=== PATIENT | male | born 1980 | race Two or more races ===

== ENCOUNTER 2019-03-16 13:24 | Inpatient (IN) | payer SELFPAY ==
[~2019-03-16] VITALS: Ht 185.4 cm; Wt 76.8 kg
[2019-03-16] MEDS ORDERED: MIDAZOLAM DRIP 50 mg/50mL 0 ML IV ONE (13:26)
[2019-03-16] MEDS ORDERED: SODIUM CHLORIDE 0.9% 500 ML IVB ONE (13:28)
[2019-03-16] MEDS: MIDAZOLAM DRIP 50 mg/50mL 50 ML IV SCH ×2 (13:30→20:23)
[2019-03-16] MEDS ORDERED: SUCCINYLCHOLINE CHLORIDE 20 MG/ML 10ML VIAL IV ONE ×2 (13:33→14:30)
[2019-03-16 13:39] LABS: Basophils # (auto) 0.1 uL; Basophils % (auto) 0.4 % (0.0-2.0); Eosinophils # (auto) 0.1 uL; Eosinophils % (auto) 0.8 % (0.0-7.0); Hematocrit 42.8 % (41.0-53.0); Hemoglobin 13.9 g/dL (13.5-17.5); Lymphocytes # (auto) 4.6 uL; Lymphocytes % (auto) 33.1 % (10.0-50.0); Mean Corpuscular Hemoglobin 30.1 pg (28.0-32.0); Mean Corpuscular Hgb Conc. 32.5 g/dL (32.0-36.0); Mean Corpuscular Volume 92.6 fL (80.0-100.0); Monocytes # (auto) 0.9 uL; Monocytes % (auto) 6.2 % (0.0-12.0); Neutrophils # (auto) 8.3 uL; Neutrophils % (auto) 59.5 % (37.0-80.0); Nucleated Red Blood Cells % 0.1 %; Platelet Count (auto) 266 10^3/uL (140-450); Red Blood Cells 4.63 10^6/uL (4.5-5.90)
[2019-03-16] MEDS: PROPOFOL 100 ML IV SCH ×2 (13:45→22:32)
[2019-03-16] MEDS ORDERED: PROPOFOL 100 ML IV ONE (13:50)
[2019-03-16 13:56] LABS: Alanine Aminotransferase 45 U/L (16-61); Anion Gap 13 (5-15); Aspartate Aminotransferase 37 U/L (15-37); BUN/Creatinine Ratio 22.1; Blood Alcohol < 3.0 mg/dL (0-5); Blood Urea Nitrogen 23 mg/dL (7-18); Calcium 7.5 mg/dL (8.5-10.1); Carbon Dioxide 19 mmol/L (21-32); Chloride 109 mmol/L (98-107); GFR African American 104 mL/min; GFR Non-African American 86 mL/min; Glucose 227 mg/dL (74-106); Magnesium 2.3 mg/dL (1.6-2.6); Potassium 3.3 mmol/L (3.5-5.1); Sodium 141 mmol/L (136-145)
[2019-03-16 14:01] LABS: Alkaline Phosphatase 74 U/L (45-117); Bilirubin, Total 0.7 mg/dL (0.2-1.0); Total Protein 6.6 g/dL (6.4-8.2)
[2019-03-16 14:15] VITALS: BP 164/89
[2019-03-16] MEDS: NOREPINEPHRINE 8 MG/250ML KIT 250 ML IV SCH (14:20)
[2019-03-16 14:35] LABS: Lactic Acid w/Reflex 6.1 mmol/L (0.4-2.0)
--- NOTE | 2019-03-16 14:44 | NUR ---
Respiratory note: PATIENT BIBA S/P CPR INTUBATED WITH A 7.5 ETT SECURED AT THE 20CM MARKING AND WITH ROSC ACHIEVED. HE WAS REINTUBATED WITH AN 8.0 ETT THE CUFF WAS BLOWN ON INITIAL ETT. TUBE WAS SECURED VIA ASHLEY AT THE 24CM MARKING AT THE LIP. HE WAS PLACED ON V15 ESPRIT VENTILATOR WITH THE CHARTED SETTINGS PER DR. SUAREZ'S BEDSIDE ORDER. LUNG SOUNDS ARE COARSE T/O AND A MODERATE AMOUNT OF THICK AYERS/BLOOD TINGED SECRETIONS WHEN SUCTIONED. SPUTUM SAMPLE COLLECTED AND SENT TO LAB. PATIENT IS SEDATED ON VERSED AND PROPOFOL DRIP AND HAS LEVOPHED DRIP FOR BP. HE REMAINS SLIGHTLY AGITATED, MOVING ABOUT PERIODICALLY. VENT PLUGGED INTO RED OUTLET AND ALL ALARMS ARE SET AND AUDIBLE. WILL CONTINUE TO ASSESS PATIENT WELL VENTILATOR FUNCTION.
[2019-03-16] MEDS ORDERED: NITROGLYCERIN 0.4 MG SL TAB SL PRN ×2 (15:00→15:45)
[2019-03-16] MEDS ORDERED: MORPHINE SULF INJ 2 MG/ML SYRINGE 1ML IV PRN ×2 (15:00→15:45)
[2019-03-16] MEDS ORDERED: MEPERIDINE HCL (25 MG/ML) 1ML VIAL ONE (15:26)
[2019-03-16] MEDS ORDERED: LEVOFLOXACIN 500MG 100 ML IV ONE (15:30)
[2019-03-16] MEDS ORDERED: ATRACURIUM BESYLATE 1,000 MG in D5W 5% 150 ML IV SCH (15:34)
[2019-03-16] MEDS ORDERED: fentaNYL Drip 2500mCg/250mlNS 250 ML IV SCH (15:34)
[2019-03-16] MEDS ORDERED: MEPERIDINE HCL (25 MG/ML) 1ML VIAL IV ONE (15:45)
[2019-03-16] MEDS ORDERED: POTASSIUM CHL 20MEQ/100ML 100 ML IV ONE (15:45)
[2019-03-16] MEDS ORDERED: DEXTROSE (50%) 50ML SYRG IV PRN (15:45)
[2019-03-16] MEDS ORDERED: fentaNYL Drip 2500mCg/250mlNS 250 ML IV ONE (16:01)
[2019-03-16 16:02] LABS: Urine Bacteria NONE SEEN /hpf (None Seen); Urine Blood 2+ /uL (Negative); Urine Mucus FEW (None Seen); Urine Specific Gravity 1.026 (1.001-1.035); Urine WBC 49 /hpf (0 - 3); Urine WBC Clumps PRESENT /hpf (None Seen)
[2019-03-16 16:04] VITALS: BP 154/87
[2019-03-16 16:06] LABS: Alcohol, Urine < 3.0 mg/dL (0-5); Amphetamine Screen, Urine POSITIVE (NEGATIVE); Barbiturate Scree,Urine NEGATIVE (NEGATIVE); Benzodiazephine Screen, Urine POSITIVE (NEGATIVE); Cannabinoid Screen, Urine POSITIVE (NEGATIVE); Cocaine Screen, Urine NEGATIVE (NEGATIVE); Opiate Scree,Urine NEGATIVE (NEGATIVE); Phencyclidine Screen, Urine NEGATIVE (NEGATIVE)
[2019-03-16] MEDS: fentaNYL Drip 2500mCg/250mlNS 250 ML IV SCH (16:10)
[2019-03-16] MEDS ORDERED: ATRACURIUM BESYLATE 1,000 MG in D5W 5% 150 ML IV ONE (16:15)
[2019-03-16] MEDS ORDERED: OPTISON 3ml Vial for INJ IV ONE ×2 (17:08→17:15)
[2019-03-16 17:09] LABS: Phosphorus 2.4 mg/dL (2.5-4.90)
[2019-03-16] MEDS: ACCU-CHEK COMFORT CURVE STRIP VI SCH ×2 (17:33→21:30)
[2019-03-16] MEDS: InsuLIN REG 1unit/0.01ml Soln (100units/ml) SC SCH ×2 (17:33→20:00)
[2019-03-16] MEDS ORDERED: ARTIFICIAL TEAR OPTH(EYE) OINT 3.5GM EACHEYE SCH (18:00)
[2019-03-16 18:10] VITALS: BP 101/80
[2019-03-16] MEDS ORDERED: SODIUM BICARBONATE 8.4 % INJ 50ML VIAL IV ONE (19:00)
[2019-03-16 19:50] VITALS: BP 103/73
[2019-03-16 21:51] VITALS: BP 146/84
[2019-03-16] MEDS: CLINDAMYCIN 300MG IV 50 ML IV SCH (22:42)
[2019-03-16] MEDS: FAMOTIDINE (10MG/ML) 2ML VL IV SCH (22:47)
[2019-03-16] MEDS: ARTIFICIAL TEARS 15ml EACHEYE SCH (22:47)
[2019-03-16 23:50] VITALS: BP 126/50
[2019-03-17] VITALS (59 sets, daily range): BP systolic 78–121; BP diastolic 45–79
[2019-03-17] MEDS: ACCU-CHEK COMFORT CURVE STRIP VI SCH ×6 (00:14→20:00)
[2019-03-17] MEDS: MIDAZOLAM DRIP 50 mg/50mL 50 ML IV SCH ×4 (01:05→22:26)
[2019-03-17] MEDS: ARTIFICIAL TEARS 15ml EACHEYE SCH ×6 (03:36→22:27)
[2019-03-17] MEDS: fentaNYL Drip 2500mCg/250mlNS 250 ML IV SCH ×2 (04:45→18:13)
[2019-03-17] MEDS: InsuLIN REG 1unit/0.01ml Soln (100units/ml) SC SCH ×6 (04:46→20:00)
[2019-03-17] MEDS: CLINDAMYCIN 300MG IV 50 ML IV SCH ×2 (06:26→14:24)
[2019-03-17] MEDS: PROPOFOL 100 ML IV SCH ×2 (07:32→16:14)
[2019-03-17] MEDS: FAMOTIDINE (10MG/ML) 2ML VL IV SCH ×2 (08:47→22:27)
[2019-03-17] MEDS: ENOXAPARIN SOD 40 MG/0.4 ML SYRINGE SC SCH (08:47)
[2019-03-17] MEDS ORDERED: cefTRIAXone 1GM/50ML D5W 50 ML IV SCH (09:00)
--- NOTE | 2019-03-17 09:20 | NUR ---
Respiratory note: ADVANCED PT'S ETT 4CM WITHOUT INCIDENT PER CXR FINDING. SECURED ETT AT 28CM AT THE LIP WITH ASHLEY. ADEQUATE VT. RN AWARE OF CHANGE.
--- NOTE | 2019-03-17 10:45 | NUR ---
RT NOTE: PT. TRANSFERRED TO ICU 103 WITH RN NIKKI AND DIRECTOR OF DIGITAL MARKETING STUDENT WITHOUT INCIDENT. WET WASHER MACHINE IN PLACE. PT. BAGGED WITH 15L O2. PT. PLACED ON VENT WITH ORDERED VENT SETTINGS.
--- NOTE | 2019-03-17 10:50 | NUR ---
Admit to ICU from ER on vent Deborah CAMPdmitted to ICU via rney on box loader, intubated and being bagged by Respiratory Therapist. Patient transferred to bed, connected to mechanical ventilator by therapist, KAITLYN at bedside. Patient connected to ICU monitoring, weighed by bedscale, oriented to Delmy carmichael RN. Patient maxed on 3 sedation and Levophed infusing at 6mcg to right femoral Zoll/ TLC. Pupils 2, equal, sluggish. No gag noted at this time, no response to pain. Sedation to be titrate as tolerated. Pt orally intubated. Tolerating ventilator well, no distress noted. Pt noted afib 50-60's. All pulses palpable. Abd round and soft with active bowel sounds. Skin intact. Peripheral iv's also noted to left ac and left foot, patent and asymptomatic. Zoll to continues therapeutic hypothermia until 191 as reported. Current temp 91.4 Rectally. See further notes.
--- NOTE | 2019-03-17 11:55 | NUR ---
WOUND CARE NOTE: Wound care in to see patient due to low Guanako score of 12 and intubation status, putting patient to high risk for skin breakdown. Patient is 38 years old male admitted s/p CPR. Patient is resting in ICU bed in Rm. 103. He's intubated, sedated and mechanically ventilated. Patient appears to be in no pain using Doan Jackson Faces Pain Scale. Skin assessment done with the assistance of patient's nurse, LALITO Brock. No open wound noted other than puncture wound to distal LLE possibly from IO site; area is clean and dry, left open to air. No pressure injury noted. Repositioned patient for comfort facing his left side, redistributed pressure points with pillows. Patient tolerated well. Patient's family and LALITO Brock at bedside. RECOMMENDATION: BID/PRN Cleaning and application of Barrier cream to sacral, buttocks as preventative per MD order, Dietary consult for low Guanako score, frequent turning and repositioning schedule as condition permits, redistribute pressure points with pillows, continue monitoring by wound care while patient is mechanically ventilated. Addendum: 03/17/19 at 1530 by Herlinda Johnson RN Amended: Links added.
[2019-03-17 12:12] LABS: Basophils # (auto) 0.1 uL; Basophils % (auto) 0.9 % (0.0-2.0); Eosinophils # (auto) 0.1 uL; Eosinophils % (auto) 1.3 % (0.0-7.0); Hematocrit 44.5 % (41.0-53.0); Hemoglobin 14.9 g/dL (13.5-17.5); Lymphocytes # (auto) 1.5 uL; Lymphocytes % (auto) 19.9 % (10.0-50.0); Mean Corpuscular Hgb Conc. 33.4 g/dL (32.0-36.0); Mean Corpuscular Volume 89.8 fL (80.0-100.0); Monocytes # (auto) 0.6 uL; Monocytes % (auto) 8.4 % (0.0-12.0); Neutrophils # (auto) 5.1 uL; Neutrophils % (auto) 69.5 % (37.0-80.0); Nucleated Red Blood Cells % 0.1 %; Platelet Count (auto) 250 10^3/uL (140-450); Red Blood Cells 4.95 10^6/uL (4.5-5.90); Red Cell Distribution Width 13.2 % (11.8-14.3); White Blood Cell 7.3 10^3/uL (4.4-10.8)
[2019-03-17 12:28] LABS: Potassium 3.3 mmol/L (3.5-5.1)
[2019-03-17 12:36] LABS: Albumin 2.9 g/dL (3.4-5.0); BUN/Creatinine Ratio 26.7; Bilirubin, Total 0.6 mg/dL (0.2-1.0); Calcium 8.3 mg/dL (8.5-10.1); Magnesium 2.5 mg/dL (1.6-2.6); Total Protein 6.3 g/dL (6.4-8.2)
[2019-03-17] MEDS: NOREPINEPHRINE 8 MG/250ML KIT 250 ML IV SCH (14:00)
--- NOTE | 2019-03-17 15:00 | NUR ---
ALL BELONGINGS AT BEDSIDE SENT HOME WITH FATHER MARCELO. FORM COMPLETED
--- NOTE | 2019-03-17 15:25 | NUR ---
MD AT BEDSIDE DR. FLOWERS UPDATED ON PATIENTS STATUS. NEW ORDERS IN PLACE. MD SPOKE TO FATHER AT BEDSIDE, UPDATED ON PLAN OF CARE AND CURRENT STATUS, QUESTIONS AND CONCERNS ADDRESSED. REQUEST FOR MEDICAL RECORDS REQUESTED BY FATHER AT BEDSIDE FROM [facility]. DISCLOSURE OF HEALTH INFORMATION FOR SIGNED.
--- NOTE | 2019-03-17 15:26 | NUR ---
CARDIOLOGY CONSULT PAGED DR. MATTHEWS PAPER CUP HANDLE MACHINE OPERATOR. MSG LEFT WITH EXCHANGE, AWAITING CALLBACK.
[2019-03-17] MEDS ORDERED: POTASSIUM EFFERVESENT TAB 25 MEQ GT ONE (15:30)
--- NOTE | 2019-03-17 16:17 | NUR ---
Blood sugar reading via finger stick 64. Patient remains intubated/ sedated and NPO. Dextrose give per protocol.
--- NOTE | 2019-03-17 16:35 | NUR ---
Gastric residual 150ml of gastric residual noted during aspiration. Potassium replacement changed from OG to IV. Md updated on blood glucose of 64. No new orders, Accu checks to remain as ordered.
[2019-03-17] MEDS ORDERED: POTASSIUM CHL 20MEQ/100ML 100 ML IV ONE ×2 (16:40→16:45)
--- NOTE | 2019-03-17 17:03 | NUR ---
Family updated on pt status Family of BOB CAMP updated on patient's status and condition. All questions and concerns addressed. Father, Amado verbalized understanding.
[2019-03-17] MEDS: PIPERACILLIN-TAZOB 3.375GM 100 ML IV SCH (18:12)
[2019-03-17 19:02] LABS: Albumin 2.7 g/dL (3.4-5.0); Calcium 8.3 mg/dL (8.5-10.1); Potassium 3.2 mmol/L (3.5-5.1)
[2019-03-17 19:07] LABS: BUN/Creatinine Ratio 22.5; Bilirubin, Total 0.8 mg/dL (0.2-1.0); Total Protein 6.1 g/dL (6.4-8.2)
--- NOTE | 2019-03-17 19:15 | NUR ---
Opening Shift Note Received pt on mechanical ventilator, sedated on versed, propofol, and fentanyl. Pt does not awaken spontaneously or to any stimuli. No cough or gag present. Will titrate down on sedation accordingly. Pupils are round, equal, reactive to light and sluggish. OGT in place, clamped. Positive placement checked via air bolus. Palpable pulses. Sinus Rhythm on bedside monitor in 90's. Minimal amount of secretions suctioned endotracheally. Bernal catheter in place draining to gravity. Skin intact. Blanchable redness to sacrum. placed optifoam to sacrum for preventative measures. Re warming phase of therapeutic hypothermia started now. All alarms on and audible. Pt in full view of RN. Will continue to monitor closely.
--- NOTE | 2019-03-17 21:21 | NUR ---
Family at bedside. Sister here and friend.
[2019-03-18] VITALS (106 sets, daily range): BP systolic 84–132; BP diastolic 47–81
[2019-03-18] MEDS: ARTIFICIAL TEARS 15ml EACHEYE SCH ×6 (02:00→22:19)
--- NOTE | 2019-03-18 03:00 | NUR ---
PT REACHED REWARMING TARGET TEMPERATURE
[2019-03-18 03:46] LABS: Basophils # (auto) 0 uL; Basophils % (auto) 0.1 % (0.0-2.0); Eosinophils # (auto) 0 uL; Hematocrit 50.1 % (41.0-53.0); Hemoglobin 15.9 g/dL (13.5-17.5); Lymphocytes # (auto) 0.5 uL; Lymphocytes % (auto) 2.8 % (10.0-50.0); Mean Corpuscular Hemoglobin 30.1 pg (28.0-32.0); Mean Corpuscular Hgb Conc. 31.8 g/dL (32.0-36.0); Mean Corpuscular Volume 94.7 fL (80.0-100.0); Monocytes # (auto) 0.8 uL; Monocytes % (auto) 4.5 % (0.0-12.0); Neutrophils # (auto) 16.4 uL; Neutrophils % (auto) 92.6 % (37.0-80.0); Nucleated Red Blood Cells % 0.1 %; Platelet Count (auto) 226 10^3/uL (140-450); Red Blood Cells 5.29 10^6/uL (4.5-5.90); White Blood Cell 17.7 10^3/uL (4.4-10.8)
[2019-03-18] MEDS: InsuLIN REG 1unit/0.01ml Soln (100units/ml) SC SCH ×6 (04:00→20:00)
[2019-03-18 04:07] LABS: Albumin 2.7 g/dL (3.4-5.0); Calcium 8.4 mg/dL (8.5-10.1); Potassium 3.6 mmol/L (3.5-5.1)
[2019-03-18 04:13] LABS: BUN/Creatinine Ratio 23.3; Bilirubin, Total 0.9 mg/dL (0.2-1.0); Total Protein 6.6 g/dL (6.4-8.2)
[2019-03-18] MEDS: ACCU-CHEK COMFORT CURVE STRIP VI SCH ×6 (04:18→21:40)
[2019-03-18] MEDS: PIPERACILLIN-TAZOB 3.375GM 100 ML IV SCH ×4 (05:21→17:51)
--- NOTE | 2019-03-18 05:30 | NUR ---
NEURO WEANED PROPOFOL OFF AT THIS TIME TO ASSESS NEURO STATUS OF PT. NO RESPONSE. VERSED AT 5MG. FENTANYL AT 50 MCG
--- NOTE | 2019-03-18 07:15 | NUR ---
REPORT RECEIVED FROM RELIGIOUS ASSISTANT NURSE. PATIENT RESTING IN BED AT THIS TIME. PATIENT INTUBATED AND SEDATED, RESPIRATIONS EVEN AND UNLABORED. NO SIGNS OF ACUTE DISTRESS NOTED. BED IN LOW POSITION. WILL CONTINUE TO MONITOR.
--- NOTE | 2019-03-18 07:26 | NUR ---
end of shift note report given to day shift RN to assume care
--- NOTE | 2019-03-18 10:10 | NUR ---
DR CANALES AT BEDSIDE TO ASSESS PATIENT AND DISCUSS PLAN OF CARE. MD MADE AWARE OF PATIENTS COOL HANDS WITH MOTTLING. PER MD MONITOR AT THIS TIME, PULSES PALPABLE. PER MD START TUBE FEEDING PER DIETARY RECOMMENDATION. ADMINISTER LASIX 20MG IVP X1 DOSE. ALL ORDERS NOTED IN CHART.
[2019-03-18] MEDS: ENOXAPARIN SOD 40 MG/0.4 ML SYRINGE SC SCH (10:11)
[2019-03-18] MEDS: FAMOTIDINE (10MG/ML) 2ML VL IV SCH ×2 (10:12→22:19)
[2019-03-18] MEDS ORDERED: FUROSEMIDE 20 MG/2 ML VIAL IV ONE (13:30)
[2019-03-18] MEDS: NOREPINEPHRINE 8 MG/250ML KIT 250 ML IV SCH (14:00)
--- NOTE | 2019-03-18 14:00 | NUR ---
DR WALSH AT BEDSIDE TO ASSESS PATIENT AND DISCUSS PLAN OF CARE. ALL ORDERS NOTED IN CHART.
--- NOTE | 2019-03-18 17:26 | NUR ---
INFORMED DR MATTHEWS OF PATIENTS HEART RATE 110S-120'S PER MD NO NEW ORDERS AT THIS TIME.
--- NOTE | 2019-03-18 19:30 | NUR ---
REPORT RECEIVED, ASSUMED CARE.
--- NOTE | 2019-03-18 20:10 | NUR ---
family called gave update.
[2019-03-18] MEDS: METOPROLOL TARTRATE 25 MG TAB PO SCH (22:19)
[2019-03-19] VITALS (84 sets, daily range): BP systolic 92–146; BP diastolic 47–92
[2019-03-19] MEDS: ACCU-CHEK COMFORT CURVE STRIP VI SCH ×6 (00:57→20:25)
[2019-03-19] MEDS: PIPERACILLIN-TAZOB 3.375GM 100 ML IV SCH ×4 (00:57→18:00)
[2019-03-19] MEDS: ARTIFICIAL TEARS 15ml EACHEYE SCH ×6 (01:47→22:00)
[2019-03-19] MEDS: fentaNYL Drip 2500mCg/250mlNS 250 ML IV SCH ×2 (02:11→08:36)
[2019-03-19] MEDS: MIDAZOLAM DRIP 50 mg/50mL 50 ML IV SCH (02:11)
[2019-03-19] MEDS: InsuLIN REG 1unit/0.01ml Soln (100units/ml) SC SCH ×6 (03:19→20:00)
[2019-03-19 04:23] LABS: Basophils # (auto) 0 uL; Basophils % (auto) 0.3 % (0.0-2.0); Eosinophils # (auto) 0 uL; Eosinophils % (auto) 0.2 % (0.0-7.0); Hematocrit 41.2 % (41.0-53.0); Lymphocytes # (auto) 0.6 uL; Lymphocytes % (auto) 4.4 % (10.0-50.0); Mean Corpuscular Hemoglobin 30.5 pg (28.0-32.0); Mean Corpuscular Hgb Conc. 33.9 g/dL (32.0-36.0); Mean Corpuscular Volume 89.9 fL (80.0-100.0); Monocytes # (auto) 0.5 uL; Monocytes % (auto) 3.9 % (0.0-12.0); Neutrophils # (auto) 11.7 uL; Neutrophils % (auto) 91.2 % (37.0-80.0); Nucleated Red Blood Cells % 0.1 %; Platelet Count (auto) 204 10^3/uL (140-450); Red Blood Cells 4.59 10^6/uL (4.5-5.90); Red Cell Distribution Width 13.9 % (11.8-14.3); White Blood Cell 12.8 10^3/uL (4.4-10.8)
[2019-03-19 04:43] LABS: Calcium 8.1 mg/dL (8.5-10.1); Potassium 3.5 mmol/L (3.5-5.1)
[2019-03-19 04:49] LABS: BUN/Creatinine Ratio 30.1
--- NOTE | 2019-03-19 06:35 | NUR ---
Patient bathe/linen change Patient given complete bath. Skin integrity assessed for any changes. Linens changed. Patient repositioned for comfort.
--- NOTE | 2019-03-19 07:05 | NUR ---
OPENING NOTE RECEIVED REPORT FROM STAFFING AND SCHEDULING COORDINATOR RN. ASSUMED CARE OF PATIENT. PT INTUBATED AND MODERATELY SEDATED ( SEE IV SPREADSHEET). NO S/S OF DISTRESS NOTED. VITAL SIGNS STABLE. ZOLL IN PLACE PER PROTOCOL. BARR CATHETER IN TACT AND DRAINING TO GRAVITY. BED LOCKED AND IN LOWEST POSITION. WILL CONTINUE TO MONITOR AND ASSESS PATIENT.
[2019-03-19] MEDS: NOREPINEPHRINE 8 MG/250ML KIT 250 ML IV SCH (08:37)
--- NOTE | 2019-03-19 10:20 | NUR ---
AT BEDSIDE DR. CANALES AT BEDSIDE TO ASSESS PATIENT AND UPDATE PLAN OF CARE. NEW ORDERS RECEIVED, NOTED IN CHART.
[2019-03-19] MEDS: ASPirin-EC 81 mg tab PO SCH (10:34)
[2019-03-19] MEDS: METOPROLOL TARTRATE 25 MG TAB PO SCH ×3 (10:34→22:00)
[2019-03-19] MEDS: ENOXAPARIN SOD 40 MG/0.4 ML SYRINGE SC SCH (10:35)
[2019-03-19] MEDS: FAMOTIDINE (10MG/ML) 2ML VL IV SCH ×2 (10:35→22:00)
[2019-03-19] MEDS ORDERED: FUROSEMIDE 20 MG/2 ML VIAL IV ONE (10:45)
[2019-03-19] MEDS ORDERED: POTASSIUM EFFERVESENT TAB 25 MEQ GT ONE (10:45)
[2019-03-19] MEDS ORDERED: DIGOXIN 0.25 MG TAB PO ONE (11:00)
--- NOTE | 2019-03-19 11:27 | NUR ---
NUTRITION CONSULT/ASSESSMENT NOTES Please refer to link notes of nutrition screen form filed under the intervention section of the plan of care for further details. Est. Needs: 2000 kcal to 2400 kcal (25-30 kcal/kgBW), 80 gms to 96 gms pro (1.0-1.2 gms/kgBW). Will continue to monitor pertinent labs and reassess nutrient need prn Thank you for this consult. Addendum: 03/19/19 at [address] Amended: Links added.
--- NOTE | 2019-03-19 11:53 | NUR ---
AT BEDSIDE DR. WALSH AT BEDSIDE TO ASSESS PATIENT AND UPDATE PLAN OF CARE. OK TO BEGIN CPAP TRIAL. ORDERS RECEIVED, NOTED IN CHART.
--- NOTE | 2019-03-19 12:00 | NUR ---
CPAP TRIAL RT AT BEDSIDE TO BEGIN CPAP TRIAL. PT AWAKE AND FOLLOWING COMMANDS APPROPRIATELY. PT INCREASINGLY AGITATED WHEN STIMULATED. VITAL SIGNS STABLE, NO S/S OF DISTRESS NOTED. WILL BEGIN PRECEDEX IF AGITATION INCREASES.
[2019-03-19] MEDS ORDERED: DexMEDEtomidine 400 MCG in D5W 5% 96 ML IV SCH (12:08)
--- NOTE | 2019-03-19 13:45 | NUR ---
MD ASH WALSH PAGEEthan. AWAITING CALL BACK TO READ MD CULVER RESULTS FROM CPAP TRIAL.
--- NOTE | 2019-03-19 13:53 | NUR ---
CALLBACK DR. WALSH CALLED BACK. ABG RESULTS FROM CPAP TRIAL READ BACK. GAVE ORDER TO EXTUBATE.
--- NOTE | 2019-03-19 14:10 | NUR ---
EXTUBATION RT AT BEDSIDE TO EXTUBATE PATIENT PER MD ORDER. NO S/S OF DISTRESS NOTED. VITAL SIGNS STABLE. HIGH FLOW HUMIDIFYING MASK APPLIED. NO STRIDOR AUSCULTATED.
--- NOTE | 2019-03-19 14:10 | NUR ---
Respiratory note: PT EXTUBATED AT THIS TIME. PT PLACED ON C/A 40%. NO STRIDOR HEARD. PT SPO2 IS 100%, RR 14, HR 101. PT ATTACHED TO BEDSIDE POX.
[2019-03-19] MEDS ORDERED: EPINEPHrine HCL 0.5 ML NEB NEB ONE (15:00)
--- NOTE | 2019-03-19 17:30 | NUR ---
D/C BARR PT CONTINUES TO URINATE PAST BARR CATHETER ON TO THE BED. BARR CATHETER IRRIGATED WITH NORMAL SALINE, CHECKED BALLOON INFLATION AMOUNT AT 10 MLS, D/C'D BARR PER PROTOCOL. CATHETER CLOGGED WITH EXCESSIVE SEDIMENT. INSTRUCTED PT ON USE OF URINAL. URINAL WITHIN REACH AT BEDSIDE.
--- NOTE | 2019-03-19 18:35 | NUR ---
ICE CHIPS PT TOLERATED ICE CHIPS WELL, BUT GETS LETHARGIC AND FALLS ASLEEP, SO NO MORE WERE GIVEN.
--- NOTE | 2019-03-19 18:43 | NUR ---
RESPIRATORY ASSESSMENT PT PLACED ON 2L NASAL CANNULA FROM HIGH FLOW MASK. LUNG SOUNDS CLEAR, RR 17, SP02 100%. TOLERATING WELL. NO S/S OF DISTRESS NOTED.
--- NOTE | 2019-03-19 23:42 | NUR ---
ICE CHIPS PT REQUESTING WATER, ICE CHIPS GIVEN TO PT TO ASSESS SWALLOWING. PT COUGHED WHEN GIVEN ICE CHIPS. PT SUCTIONED. THICK YELLOW SECRETIONS SUCTIONED FROM BACK OF THROAT. WILL CONTINUE TO ASSESS PT TOLERANCE OF SWALLOWING. PRIMARY RN NOTIFIED. PT LYING IN BED AT THIS TIME, NO S/S OF DISTRESS NOTED, VSS. BED LOCKED AND IN LOWEST POSITION, BED ALARM ON. SAFETY PRECAUTIONS IN PLACE.
[2019-03-20] VITALS (21 sets, daily range): BP systolic 107–135; BP diastolic 48–83
[2019-03-20] MEDS: ARTIFICIAL TEARS 15ml EACHEYE SCH ×2 (02:00→06:09)
[2019-03-20 03:57] LABS: Basophils # (auto) 0 uL; Basophils % (auto) 0.3 % (0.0-2.0); Eosinophils # (auto) 0 uL; Eosinophils % (auto) 0.2 % (0.0-7.0); Hematocrit 37.3 % (41.0-53.0); Hemoglobin 12.6 g/dL (13.5-17.5); Lymphocytes # (auto) 0.7 uL; Mean Corpuscular Hemoglobin 30.4 pg (28.0-32.0); Mean Corpuscular Hgb Conc. 33.8 g/dL (32.0-36.0); Mean Corpuscular Volume 89.8 fL (80.0-100.0); Monocytes # (auto) 0.6 uL; Monocytes % (auto) 5.5 % (0.0-12.0); Neutrophils # (auto) 9.9 uL; Platelet Count (auto) 213 10^3/uL (140-450); Red Blood Cells 4.15 10^6/uL (4.5-5.90); Red Cell Distribution Width 13.2 % (11.8-14.3); White Blood Cell 11.3 10^3/uL (4.4-10.8)
[2019-03-20] MEDS: ACCU-CHEK COMFORT CURVE STRIP VI SCH ×3 (04:00→08:00)
[2019-03-20] MEDS: InsuLIN REG 1unit/0.01ml Soln (100units/ml) SC SCH ×3 (04:00→08:00)
[2019-03-20 04:13] LABS: Potassium 3.7 mmol/L (3.5-5.1)
[2019-03-20 04:17] LABS: BUN/Creatinine Ratio 39.1; Calcium 8.6 mg/dL (8.5-10.1); Magnesium 2.2 mg/dL (1.6-2.6)
[2019-03-20] MEDS: PIPERACILLIN-TAZOB 3.375GM 100 ML IV SCH ×4 (06:10→17:53)
--- NOTE | 2019-03-20 07:50 | NUR ---
PATIENT ASKING FOR WATER RN SAT PATIENT IN HIGH FOWLERS, SMALL AMOUNT OF WATER GIVEN, FOLLOWED BY PATIENT COUGHING AFTER SWALLOWING. PATIENT NOT ABLE TO TOLERATE. WILL CONTINUE TO REASSESS
--- NOTE | 2019-03-20 08:41 | NUR ---
Respiratory note: PT ASSESSED FOR PRN BIPAP ORDER. PT FOUND TO BE IN NO DISTRESS, SLEEPING. SPO2 94% ON 3L N/C HR 105 RR 20. LALITO JOSEPH AT BEDSIDE AND AWARE TO HAVE RT PAGED IF NEEDED.
--- NOTE | 2019-03-20 09:10 | NUR ---
URINATION PATIENT STATED HE NEEDED TO URINATE, PROVIDED URINAL. EDUCATED PATIENT HE WAS NOT ABLE TO GET OUT OF BED TO URINATE. PATIENT ATTEMPTED TO USE URINAL BUT WAS UNSUCCESSFUL IN GETTING URINE INTO URINAL. PATIENT URINATED ALL OVER HIMSELF AND BED.
--- NOTE | 2019-03-20 09:19 | NUR ---
ASSISTED PATIENT TO BEDSIDE CHAIR MINIMAL ASSISTANCE NEEDED BY RN. PATIENT TRANSFERRED FROM BED TO CHAIR. VITALS REMAINED STABLE. EDUCATED TO PATIENT IMPORTANCE OF STAYING IN CHAIR AND NOT STANDING BY HIMSELF. PATIENT VERBALIZED UNDERSTANDING, STILL FATIGUED. AFTER TRANSFER, PATIENT GIVEN ICE CHIPS AND TOLERATED FAIR, NO COUGHING NOTED WITH ICE CHIPS. CALL LIGHT WITHIN REACH AND PATIENT IN VIEW OF NURSES STATION
[2019-03-20] MEDS: ENOXAPARIN SOD 40 MG/0.4 ML SYRINGE SC SCH (10:00)
[2019-03-20] MEDS: FAMOTIDINE (10MG/ML) 2ML VL IV SCH ×2 (10:00→22:13)
--- NOTE | 2019-03-20 10:00 | NUR ---
PATIENT GOT UP FROM BEDSIDE CHAIR AND BACK TO BED WITHOUT RN ASSISTANCE. RE-EDUCATED PATIENT IMPORTANCE OF NOT GETTING UP WITHOUT ASSISTANCE. BED ALARM SET, IN VIEW OF NURSE STATION
[2019-03-20] MEDS: METOPROLOL TARTRATE 25 MG TAB PO SCH ×2 (10:02→22:14)
[2019-03-20] MEDS: DIGOXIN 0.25 MG TAB PO SCH (10:03)
[2019-03-20] MEDS: ASPirin-EC 81 mg tab PO SCH (10:03)
--- NOTE | 2019-03-20 11:12 | NUR ---
PO MEDICATIONS MEDICATIONS ADMINISTERED WITH JELLO. PATIENT SWALLOWED WITHOUT DIFFICULTY. PATIENT COUGHS WITH THIN LIQUIDS
--- NOTE | 2019-03-20 11:15 | NUR ---
FAMILY CALLED BERNADETTE CALLED FOR UPDATE, PROVIDED PASSWORD. UPDATED ON CURRENT STATUS.
--- NOTE | 2019-03-20 11:35 | NUR ---
BED ASSIGNMENT 248A- REPORT GIVEN TO RADU STARKEY AWAITING BED AND TELE BOX FOR TRANSFER.
--- NOTE | 2019-03-20 11:40 | NUR ---
PATIENT BROUGHT TO ROOM 248A. PATIENT A&OX3. ALL BELONGINGS AT BEDSIDE. PATIENT RESTING IN BED, SITTER AT BEDSIDE.
--- NOTE | 2019-03-20 19:30 | NUR ---
Opening Shift Note Assumed care of patient. Patient is sleeping comfortably with family and sitter at bedside. No S/S of distress/SOB or pain. Will continue to monitor for changes PRN. Bed locked in lowest position and bed rails up x2. Call light within reach.
[2019-03-21] MEDS: PIPERACILLIN-TAZOB 3.375GM 100 ML IV SCH ×4 (00:15→18:09)
[2019-03-21 05:00] VITALS: BP 136/63
--- NOTE | 2019-03-21 07:40 | NUR ---
Opening Shift Note Assumed care of patient. Patient is sleeping comfortably with sitter at bedside. No S/S of distress/SOB or pain. Will continue to monitor for changes PRN. Bed locked in lowest position and bed rails up x2. Call light within reach.
[2019-03-21 09:00] VITALS: BP 132/63
[2019-03-21] MEDS: ASPirin-EC 81 mg tab PO SCH (09:44)
[2019-03-21] MEDS: FAMOTIDINE (10MG/ML) 2ML VL IV SCH ×2 (09:44→21:46)
[2019-03-21] MEDS: METOPROLOL TARTRATE 25 MG TAB PO SCH ×2 (09:45→21:47)
[2019-03-21] MEDS: ENOXAPARIN SOD 40 MG/0.4 ML SYRINGE SC SCH (09:45)
[2019-03-21] MEDS: DIGOXIN 0.25 MG TAB PO SCH (09:45)
--- NOTE | 2019-03-21 11:25 | NUR ---
MD KEMP ROUNDED ON PATIENT PLAN FOR DISCHARGE TOMORROW PATIENT FATHER WANTS TO SPEAK WITH BUSBOY
--- NOTE | 2019-03-21 11:31 | NUR ---
MD VIRIDIANA DORADO FOR PT TO TAKE A SHOWER WITH SITTER ASSIST IN BATHROOM NOT BY HIMSELF
[2019-03-21 13:00] VITALS: BP 140/65
[2019-03-21 17:00] VITALS: BP 149/76
[2019-03-21 22:00] VITALS: BP 138/82
--- NOTE | 2019-03-21 22:20 | NUR ---
Hematology lab called and read results to me. Made me aware that they will confirm the results in the a.m. before they finalize positive results. Will notify day shift RN to f/u with results.
[2019-03-22] MEDS: PIPERACILLIN-TAZOB 3.375GM 100 ML IV SCH ×3 (01:05→12:02)
[2019-03-22 06:00] VITALS: BP 129/57
--- NOTE | 2019-03-22 06:19 | NUR ---
PT COMPLAIN ABOUT CHEST PAIN ONLY WHEN HE COUGH
--- NOTE | 2019-03-22 07:35 | NUR ---
Opening Note Received report from shift superintendent RN. Patient is awake, alert and oriented x4. No signs or symptoms of distress noted at this time. Patient is on room air, respirations even and unlabored. Patient denies pain at this time. Reviewed plan of care with patient, patient verbalized understanding. Bed in low and locked position, call light within reach. Sitter at bedside for safety. Will continue to monitor Q1 hour and PRN.
--- NOTE | 2019-03-22 08:10 | NUR ---
Called factory laborer Communication order for patient to be NPO. Called to see if patient is on the schedule today. Per factory laborer, patient is not on the schedule today. No orders placed for any procedures today. Will clarify order with MD. Will continue to monitor Q1 hour and PRN.
[2019-03-22 09:11] VITALS: BP 140/71
--- NOTE | 2019-03-22 09:50 | NUR ---
Dr. Shaikh brady Patient states he wants to leave AMA. Awaiting call back.
[2019-03-22] MEDS: ENOXAPARIN SOD 40 MG/0.4 ML SYRINGE SC SCH (10:00)
[2019-03-22] MEDS: FAMOTIDINE (10MG/ML) 2ML VL IV SCH (10:45)
[2019-03-22] MEDS: ASPirin-EC 81 mg tab PO SCH (10:46)
[2019-03-22] MEDS: DIGOXIN 0.25 MG TAB PO SCH (10:46)
[2019-03-22] MEDS: METOPROLOL TARTRATE 25 MG TAB PO SCH (10:47)
--- NOTE | 2019-03-22 10:54 | NUR ---
Mala from social work administrator at bedside Providing resources to patient and family for rehab services. Will continue to monitor Q1 hour and PRN.
--- NOTE | 2019-03-22 11:20 | NUR ---
Dr. Fisher at bedside Discussing plan of care with patient and family member. MD to clarify orders for any further procedure from cardiology, patient to remain NPO. Will continue to monitor Q1 hour and PRN.
--- NOTE | 2019-03-22 12:54 | NUR ---
Spoke to Dr. Fisher Patient is stating he is going to leave AMA. Dr. Fisher aware. Will have patient sign AMA form. Will continue to monitor Q1 hour and PRN.
[2019-03-22 13:03] VITALS: BP 127/75
--- NOTE | 2019-03-22 13:21 | NUR ---
AMA Note BOB CAMP states they want to leave the hospital Against Medical Advice (AMA). Patient encouraged to stay for further treatment. Dr. Shaikh karimi. Patient educated on risks and benefits of remaining in the hospital. Patient instructed on signs and symptoms and when to return to the hospital. Patient states "I was the other day, I don't want to be stuck here anymore, I want to live my life." monitoring tech removed and sent back to ICU. Patient ambulated to private vehicle with all personal belongings, accompanied by family member. No signs or symptoms of distress noted at this time.
== END 2019-03-22 12:54 | disposition left against medical advice (07) | DRG 871 ==
LOC: ER 13:24 → EDBD 13:24 → TELE 13:25 → EDBD 13:25 → ICU WEST 03-17 10:58 → TELE-EAST 03-20 11:53
PROVIDERS: ADMIT Nurse Practitioner Acute Care; ATTEND Internal Medicine
PROC: 5A1945Z Respiratory Ventilation, 24-96 Consecutive Hours (ICD-10-PCS; principal; 2019-03-16)
PROC: 0BH17EZ Insertion of Endotracheal Airway into Trachea, Via Natural or Artificial Opening (ICD-10-PCS; 2019-03-16)
PROC: 5A12012 Performance of Cardiac Output, Single, Manual (ICD-10-PCS; 2019-03-16)
PROC: 06HY33Z Insertion of Infusion Device into Lower Vein, Percutaneous Approach (ICD-10-PCS; 2019-03-16)
DX: A41.9 Sepsis, unspecified organism (principal); I21.A1 Myocardial infarction type 2; I46.9 Cardiac arrest, cause unspecified; I50.43 Acute on chronic combined systolic (congestive) and diastolic (congestive) heart failure; J69.0 Pneumonitis due to inhalation of food and vomit; J96.01 Acute respiratory failure with hypoxia; E44.0 Moderate protein-calorie malnutrition; I42.0 Dilated cardiomyopathy; I42.7 Cardiomyopathy due to drug and external agent; Z99.11 Dependence on respirator [ventilator] status; E87.6 Hypokalemia; T43.625A Adverse effect of amphetamines, initial encounter; F15.10 Other stimulant abuse, uncomplicated; I48.91 Unspecified atrial fibrillation; Z80.42 Family history of malignant neoplasm of prostate; Z68.22 Body mass index [BMI] 22.0-22.9, adult; Z82.49 Family history of ischemic heart disease and other diseases of the circulatory system; Z91.19 Patient's noncompliance with other medical treatment and regimen; Z83.3 Family history of diabetes mellitus; Y92.89 Other specified places as the place of occurrence of the external cause
CPT/HCPCS: 31500; 36415; 36556; 36600; 51702; 70450; 71045; 72125; 80048; 80053; 80061; 80307; 80320; 81001; 82310; 82550; 82805; 82962; 83605; 83690; 83735; 83880; 84100; 84484; 85025; 87040; 87070; 87081; 87205; 92950; 93005; 93306; 94002; 94003; 96374; 99291; 99292; G0378; J0330; J0696; J1956; J2250; J2543; J2704; J3480; J3490; J7060; Q9956

== ENCOUNTER 2020-03-24 15:18 | Inpatient (IN) | payer MEDICAID ==
[~2020-03-24] VITALS: Ht 180.3 cm; Wt 93.7 kg
[2020-03-24] MEDS ORDERED: FUROSEMIDE 40 MG/4 ML VIAL IV ONE (15:30)
[2020-03-24 15:55] LABS: Basophils # (auto) 0.1 10 ^3/uL (0-0.2); Basophils % (auto) 0.7 % (0.0-2.0); Eosinophils # (auto) 0.1 10 ^3/uL (0-0.8); Eosinophils % (auto) 0.8 % (0.0-7.0); Hematocrit 40.5 % (41.0-53.0); Hemoglobin 13.5 g/dL (13.5-17.5); Lymphocytes # (auto) 1.5 10 ^3/uL (0.4-5.4); Lymphocytes % (auto) 15.9 % (10.0-50.0); Mean Corpuscular Hemoglobin 29.5 pg (28.0-32.0); Mean Corpuscular Hgb Conc. 33.3 g/dL (32.0-36.0); Mean Corpuscular Volume 88.4 fL (80.0-100.0); Monocytes % (auto) 11.4 % (0.0-12.0); Neutrophils # (auto) 6.6 10 ^3/uL (1.6-8.6); Neutrophils % (auto) 71.2 % (37.0-80.0); Platelet Count (auto) 282 10^3/uL (140-450); Red Blood Cells 4.58 10^6/uL (4.5-5.90); White Blood Cell 9.2 10^3/uL (4.4-10.8)
[2020-03-24 16:22] LABS: Albumin 3.1 g/dL (3.4-5.0); Calcium 8.2 mg/dL (8.5-10.1); Potassium 4.5 mmol/L (3.5-5.1)
[2020-03-24 16:27] LABS: BUN/Creatinine Ratio 21.6; Bilirubin, Total 2.1 mg/dL (0.2-1.0); Total Protein 7.3 g/dL (6.4-8.2)
[2020-03-24] MEDS ORDERED: ASPirin 81 mg TAB PO ONE (17:45)
[2020-03-24] MEDS ORDERED: ENOXAPARIN SOD 100 MG/1 ML SYRINGE SC ONE (17:45)
[2020-03-24] MEDS ORDERED: NITROGLYCERIN 0.4 MG SL TAB SL PRN ×3 (18:15→19:45)
[2020-03-24] MEDS ORDERED: MORPHINE SULF INJ 2 MG/ML SYRINGE 1ML IV PRN ×4 (18:15→19:45)
[2020-03-24 19:23] LABS: Urine WBC None Seen /hpf (0 - 3)
[2020-03-24] MEDS ORDERED: HYDROcodone-ACET 5/325MG TAB PO PRN (19:45)
[2020-03-24] MEDS ORDERED: METOPROLOL TARTRATE 25 MG TAB PO ONE (19:45)
[2020-03-24] MEDS ORDERED: FUROSEMIDE 100 MG/10ML VIAL IV ONE (19:45)
[2020-03-24] MEDS ORDERED: ALUM & MAG HYDROX-SIMETH LIQ(MAALOX) 30 ML PO PRN (19:45)
[2020-03-24] MEDS ORDERED: ONDANSETRON HCL 4 MG/2 ML VIAL IV PRN (19:45)
[2020-03-24] MEDS ORDERED: ATORVASTATIN 20 MG TAB PO ONE (19:45)
[2020-03-24] MEDS ORDERED: DOCUSATE SOD 100 MG CAP PO PRN (19:45)
[2020-03-24 19:50] LABS: Urine Bacteria NONE SEEN /hpf (None Seen); Urine Blood Negative /uL (Negative); Urine Mucus FEW (None Seen); Urine Specific Gravity 1.005 (1.001-1.035)
[2020-03-24 20:26] VITALS: BP 129/85
[2020-03-24 21:53] LABS: INR 1.29 (0.9-1.15)
[2020-03-24] MEDS ORDERED: ATORVASTATIN 20 MG TAB PO SCH (22:00)
[2020-03-25] MEDS: LORazepam 0.5 MG TAB PO PRN ×4 (00:02→19:52)
[2020-03-25] MEDS: FUROSEMIDE 20 MG/2 ML VIAL IV SCH ×2 (06:00→17:45)
[2020-03-25 09:24] VITALS: BP 108/78
[2020-03-25] MEDS: LISINOPRIL 5 MG TAB PO SCH (09:52)
[2020-03-25] MEDS ORDERED: DOCUSATE SOD 100 MG CAP PO SCH (10:00)
[2020-03-25] MEDS: METOPROLOL SUCCINATE XL 50 MG TAB PO SCH (10:27)
[2020-03-25] MEDS: SPIRONOLACTONE 25 MG TAB PO SCH (10:27)
[2020-03-25] MEDS: ASPirin 81 mg TAB PO SCH (10:27)
[2020-03-25 11:00] LABS: Basophils # (auto) 0.1 10 ^3/uL (0-0.2); Basophils % (auto) 0.8 % (0.0-2.0); Eosinophils # (auto) 0 10 ^3/uL (0-0.8); Hematocrit 40.1 % (41.0-53.0); Hemoglobin 13.3 g/dL (13.5-17.5); Lymphocytes # (auto) 0.9 10 ^3/uL (0.4-5.4); Lymphocytes % (auto) 7.9 % (10.0-50.0); Mean Corpuscular Hemoglobin 29.3 pg (28.0-32.0); Mean Corpuscular Hgb Conc. 33.1 g/dL (32.0-36.0); Mean Corpuscular Volume 88.5 fL (80.0-100.0); Monocytes # (auto) 0.5 10 ^3/uL (0-1.3); Monocytes % (auto) 4.4 % (0.0-12.0); Neutrophils # (auto) 9.7 10 ^3/uL (1.6-8.6); Neutrophils % (auto) 86.9 % (37.0-80.0); Platelet Count (auto) 234 10^3/uL (140-450); Red Blood Cells 4.53 10^6/uL (4.5-5.90); Red Cell Distribution Width 14.1 % (11.8-14.3); White Blood Cell 11.2 10^3/uL (4.4-10.8)
[2020-03-25 11:14] LABS: Albumin 2.9 g/dL (3.4-5.0); Calcium 7.4 mg/dL (8.5-10.1); Potassium 4.9 mmol/L (3.5-5.1)
[2020-03-25 11:22] LABS: BUN/Creatinine Ratio 23.3; Magnesium 1.9 mg/dL (1.6-2.6); Total Protein 6.6 g/dL (6.4-8.2)
[2020-03-25 11:50] LABS: INR 1.79 (0.9-1.15)
[2020-03-25 16:00] VITALS: BP 100/49
[2020-03-25 19:15] LABS: Alcohol, Urine < 3.0 mg/dL (0-10); Amphetamine Screen, Urine POSITIVE (NEGATIVE); Barbiturate Scree,Urine NEGATIVE (NEGATIVE); Benzodiazephine Screen, Urine NEGATIVE (NEGATIVE); Cannabinoid Screen, Urine NEGATIVE (NEGATIVE); Cocaine Screen, Urine NEGATIVE (NEGATIVE); Opiate Scree,Urine NEGATIVE (NEGATIVE); Phencyclidine Screen, Urine NEGATIVE (NEGATIVE)
[2020-03-25] MEDS ORDERED: ATORVASTATIN 20 MG TAB PO SCH (22:00)
[2020-03-26] MEDS ORDERED: SODIUM CHL 3% 500 ML IV ONE (04:30)
[2020-03-26 05:00] VITALS: BP 105/59
[2020-03-26] MEDS: FUROSEMIDE 20 MG/2 ML VIAL IV SCH (05:28)
[2020-03-26 07:12] LABS: Basophils # (auto) 0.1 10 ^3/uL (0-0.2); Basophils % (auto) 0.5 % (0.0-2.0); Eosinophils # (auto) 0 10 ^3/uL (0-0.8); Eosinophils % (auto) 0.1 % (0.0-7.0); Hematocrit 39.9 % (41.0-53.0); Hemoglobin 13.5 g/dL (13.5-17.5); Lymphocytes # (auto) 1.7 10 ^3/uL (0.4-5.4); Lymphocytes % (auto) 13.3 % (10.0-50.0); Mean Corpuscular Hemoglobin 29.8 pg (28.0-32.0); Mean Corpuscular Hgb Conc. 33.7 g/dL (32.0-36.0); Mean Corpuscular Volume 88.3 fL (80.0-100.0); Monocytes # (auto) 1.1 10 ^3/uL (0-1.3); Monocytes % (auto) 8.5 % (0.0-12.0); Neutrophils # (auto) 9.9 10 ^3/uL (1.6-8.6); Neutrophils % (auto) 77.6 % (37.0-80.0); Platelet Count (auto) 242 10^3/uL (140-450); Red Blood Cells 4.52 10^6/uL (4.5-5.90); Red Cell Distribution Width 13.7 % (11.8-14.3); White Blood Cell 12.7 10^3/uL (4.4-10.8)
[2020-03-26 07:29] LABS: Potassium 4.4 mmol/L (3.5-5.1)
[2020-03-26 07:38] LABS: BUN/Creatinine Ratio 33.6; Calcium 7.8 mg/dL (8.5-10.1)
[2020-03-26 08:00] VITALS: BP 99/46
[2020-03-26] MEDS: LISINOPRIL 5 MG TAB PO SCH (08:29)
[2020-03-26] MEDS: METOPROLOL SUCCINATE XL 50 MG TAB PO SCH (08:29)
[2020-03-26] MEDS: SPIRONOLACTONE 25 MG TAB PO SCH (08:29)
[2020-03-26] MEDS: ASPirin 81 mg TAB PO SCH (09:44)
[2020-03-26 13:39] VITALS: BP 105/59
[2020-03-26 16:00] VITALS: BP 94/62
== END 2020-03-26 17:16 | disposition home or self-care (01) | DRG 194 ==
LOC: ER 15:18 → TELE 15:19 → TELE-EAST 19:35
PROVIDERS: ADMIT Hospitalist; ATTEND Hospitalist
DX: I13.0 Hypertensive heart and chronic kidney disease with heart failure and stage 1 through stage 4 chronic kidney disease, or unspecified chronic kidney disease (principal); N17.0 Acute kidney failure with tubular necrosis; I21.A1 Myocardial infarction type 2; R65.10 Systemic inflammatory response syndrome (SIRS) of non-infectious origin without acute organ dysfunction; E44.0 Moderate protein-calorie malnutrition; E87.1 Hypo-osmolality and hyponatremia; I50.23 Acute on chronic systolic (congestive) heart failure; I48.0 Paroxysmal atrial fibrillation; N18.9 Chronic kidney disease, unspecified; R06.03 Acute respiratory distress; D64.9 Anemia, unspecified; B17.9 Acute viral hepatitis, unspecified; F17.210 Nicotine dependence, cigarettes, uncomplicated; Z20.822 Contact with and (suspected) exposure to COVID-19; F15.10 Other stimulant abuse, uncomplicated; I25.10 Atherosclerotic heart disease of native coronary artery without angina pectoris; I42.0 Dilated cardiomyopathy; Z91.19 Patient's noncompliance with other medical treatment and regimen; Z85.46 Personal history of malignant neoplasm of prostate; Z79.899 Other long term (current) drug therapy; Z91.14 Patient's other noncompliance with medication regimen; Z83.3 Family history of diabetes mellitus
CPT/HCPCS: 36415; 71045; 80048; 80053; 80307; 81001; 83036; 83735; 83880; 84100; 84443; 84484; 85025; 85610; 85730; 87426; 93005; 93306; 96372; 96374; G0378

== ENCOUNTER 2020-03-31 06:33 | Emergency (ER) | payer MEDICAID ==
[~2020-03-31] VITALS: Ht 180.3 cm; Wt 86.2 kg
[2020-03-31] MEDS ORDERED: FUROSEMIDE 40 MG/4 ML VIAL IV ONE (07:30)
[2020-03-31 07:49] LABS: Basophils # (auto) 0.1 10 ^3/uL (0-0.2); Basophils % (auto) 0.6 % (0.0-2.0); Eosinophils # (auto) 0.1 10 ^3/uL (0-0.8); Eosinophils % (auto) 0.8 % (0.0-7.0); Hematocrit 43.6 % (41.0-53.0); Hemoglobin 14.7 g/dL (13.5-17.5); Lymphocytes # (auto) 0.9 10 ^3/uL (0.4-5.4); Mean Corpuscular Hemoglobin 29.4 pg (28.0-32.0); Mean Corpuscular Hgb Conc. 33.6 g/dL (32.0-36.0); Mean Corpuscular Volume 87.3 fL (80.0-100.0); Monocytes % (auto) 11.4 % (0.0-12.0); Neutrophils # (auto) 7.1 10 ^3/uL (1.6-8.6); Neutrophils % (auto) 77.2 % (37.0-80.0); Nucleated Red Blood Cells % 0.2 %; Platelet Count (auto) 258 10^3/uL (140-450); Red Blood Cells 4.99 10^6/uL (4.5-5.90); White Blood Cell 9.1 10^3/uL (4.4-10.8)
[2020-03-31 07:59] LABS: Potassium 4.9 mmol/L (3.5-5.1)
[2020-03-31 08:02] LABS: Bilirubin, Total 1.1 mg/dL (0.2-1.0); Total Protein 7.8 g/dL (6.4-8.2)
[2020-03-31 08:03] LABS: INR 1.14 (0.9-1.15); Partial Thromboplastin Time 25.6 sec (23.0-31.2)
[2020-03-31 08:08] LABS: Urine WBC None Seen /hpf (0 - 3)
[2020-03-31 08:29] LABS: Urine Bacteria NONE SEEN /hpf (None Seen); Urine Blood TRACE /uL (Negative); Urine Specific Gravity 1.026 (1.001-1.035)
[2020-03-31 08:35] LABS: Amphetamine Screen, Urine POSITIVE (NEGATIVE); Barbiturate Scree,Urine NEGATIVE (NEGATIVE); Benzodiazephine Screen, Urine NEGATIVE (NEGATIVE); Cannabinoid Screen, Urine NEGATIVE (NEGATIVE); Cocaine Screen, Urine NEGATIVE (NEGATIVE); Phencyclidine Screen, Urine NEGATIVE (NEGATIVE)
[2020-03-31 08:42] LABS: Opiate Scree,Urine NEGATIVE (NEGATIVE)
[2020-03-31 10:01] VITALS: BP 125/79
== END 2020-03-31 10:20 | disposition home or self-care (01) ==
LOC: ER 06:33
DX: I50.9 Heart failure, unspecified (principal); E44.1 Mild protein-calorie malnutrition; F15.10 Other stimulant abuse, uncomplicated; F17.210 Nicotine dependence, cigarettes, uncomplicated; Z68.26 Body mass index [BMI] 26.0-26.9, adult
CPT/HCPCS: 36415; 71045; 80053; 80307; 81001; 83880; 85025; 85610; 85730; 96374; 99284; J1940

== ENCOUNTER 2020-05-14 03:35 | Inpatient (IN) | payer MEDICAID ==
[~2020-05-14] VITALS: Ht 180.3 cm; Wt 92.4 kg
[2020-05-14 05:05] LABS: Basophils # (auto) 0.1 10 ^3/uL (0-0.2); Basophils % (auto) 0.9 % (0.0-2.0); Eosinophils # (auto) 0.1 10 ^3/uL (0-0.8); Eosinophils % (auto) 1.5 % (0.0-7.0); Hematocrit 40.2 % (41.0-53.0); Hemoglobin 13.1 g/dL (13.5-17.5); Lymphocytes # (auto) 1.5 10 ^3/uL (0.4-5.4); Lymphocytes % (auto) 17.7 % (10.0-50.0); Mean Corpuscular Hemoglobin 27.3 pg (28.0-32.0); Mean Corpuscular Hgb Conc. 32.5 g/dL (32.0-36.0); Mean Corpuscular Volume 83.9 fL (80.0-100.0); Monocytes # (auto) 1.1 10 ^3/uL (0-1.3); Monocytes % (auto) 12.5 % (0.0-12.0); Neutrophils # (auto) 5.9 10 ^3/uL (1.6-8.6); Neutrophils % (auto) 67.4 % (37.0-80.0); Nucleated Red Blood Cells % 0.1 %; Platelet Count (auto) 244 10^3/uL (140-450); Red Blood Cells 4.79 10^6/uL (4.5-5.90); Red Cell Distribution Width 16.7 % (11.8-14.3); White Blood Cell 8.7 10^3/uL (4.4-10.8)
[2020-05-14 05:10] LABS: Albumin 2.8 g/dL (3.4-5.0); Calcium 8.3 mg/dL (8.5-10.1); Potassium 4.2 mmol/L (3.5-5.1)
[2020-05-14 05:15] LABS: BUN/Creatinine Ratio 18.8; Bilirubin, Total 1.8 mg/dL (0.2-1.0); Total Protein 7.4 g/dL (6.4-8.2)
[2020-05-14] MEDS ORDERED: MORPHINE SULFATE 4 MG/ML SYR/VIAL IV ONE ×2 (07:15→08:45)
[2020-05-14] MEDS ORDERED: FUROSEMIDE 20 MG/2 ML VIAL IV ONE (07:15)
[2020-05-14] MEDS ORDERED: ONDANSETRON HCL 4 MG/2 ML VIAL IV ONE (07:15)
[2020-05-14 09:01] LABS: INR 1.37 (0.9-1.15); Partial Thromboplastin Time 25.6 sec (23.0-31.2)
[2020-05-14 09:38] LABS: Urine Bacteria NONE SEEN /hpf (None Seen); Urine Blood Negative /uL (Negative); Urine Specific Gravity 1.005 (1.001-1.035); Urine WBC <1 /hpf (0 - 3)
[2020-05-14 09:55] LABS: Alcohol, Urine < 3.0 mg/dL (0-10); Amphetamine Screen, Urine NEGATIVE (NEGATIVE); Barbiturate Scree,Urine NEGATIVE (NEGATIVE); Benzodiazephine Screen, Urine NEGATIVE (NEGATIVE); Cannabinoid Screen, Urine POSITIVE (NEGATIVE); Cocaine Screen, Urine NEGATIVE (NEGATIVE); Opiate Scree,Urine NEGATIVE (NEGATIVE); Phencyclidine Screen, Urine NEGATIVE (NEGATIVE)
[2020-05-14] MEDS ORDERED: ENOXAPARIN SOD 100 MG/1 ML SYRINGE SC ONE (10:00)
[2020-05-14] MEDS ORDERED: IOHEXOL 350 MG/ML 100ML IJ ONE (10:24)
[2020-05-14] MEDS ORDERED: LACTULOSE 20Gm/30ML SOLN PO PRN (15:00)
[2020-05-14] MEDS ORDERED: ACETAMINOPHEN 500 MG TAB PO PRN (15:00)
[2020-05-14] MEDS ORDERED: MORPHINE SULF INJ 2 MG/ML SYRINGE 1ML IV PRN ×2 (15:00)
[2020-05-14] MEDS ORDERED: NITROGLYCERIN 0.4 MG SL TAB SL PRN (15:00)
[2020-05-14] MEDS ORDERED: TEMAZEPAM 15 MG CAP PO PRN (15:00)
[2020-05-14] MEDS ORDERED: traMADol HCL 50 MG TAB PO PRN (15:00)
[2020-05-14 18:27] VITALS: BP 133/91
[2020-05-14] MEDS: PROMETHAZINE HCL 25 MG/ML 1ML IV PRN (18:34)
[2020-05-14 18:40] VITALS: BP 133/91
[2020-05-14] MEDS ORDERED: FUR20T PO (19:28)
[2020-05-14] MEDS ORDERED: POTA10TA51 PO (21:01)
[2020-05-14] MEDS: ATORVASTATIN 20 MG TAB PO SCH (21:12)
[2020-05-14] MEDS: CARVEDILOL 3.125 MG TAB PO SCH (21:19)
[2020-05-14] MEDS: SODIUM CHLOR 0.9% PF (SALINE LOCK) 10ML VIAL/SYR IV SCH (21:51)
[2020-05-14 22:32] VITALS: BP 135/76
[2020-05-15] VITALS (7 sets, daily range): BP systolic 90–120; BP diastolic 44–86
[2020-05-15] MEDS: SODIUM CHLOR 0.9% PF (SALINE LOCK) 10ML VIAL/SYR IV SCH ×3 (05:26→21:51)
[2020-05-15] MEDS ORDERED: DIGOXIN (250MCG/ML) 2 ML AMPULE IV ONE (09:30)
[2020-05-15] MEDS ORDERED: POTASSIUM CHL 20 Meq TABLET PO SCH (10:00)
[2020-05-15] MEDS ORDERED: FUROSEMIDE 40 MG/4 ML VIAL IV SCH ×2 (10:00)
[2020-05-15] MEDS: ASPirin 81 mg TAB PO SCH (10:14)
[2020-05-15] MEDS: ENOXAPARIN SOD 40 MG/0.4 ML SYRINGE SC SCH (10:15)
[2020-05-15] MEDS: NITROGLYCERIN 0.2MG/HR TOPICAL PATCH TD SCH (10:16)
[2020-05-15] MEDS: POTASSIUM CHL 10 Meq TABLET PO SCH (10:17)
[2020-05-15] MEDS: ENALAPRIL MALEATE 2.5 MG TAB PO SCH (10:22)
[2020-05-15] MEDS: CARVEDILOL 3.125 MG TAB PO SCH ×2 (10:22→21:53)
[2020-05-15] MEDS: IPRATROPIUM BROM 0.5 MG/2.5ML INH SOL NEB SCH ×2 (13:00→18:29)
[2020-05-15] MEDS: LEVALBUTEROL HCL 1.25 MG/3 ML NEB NEB SCH ×2 (13:00→18:29)
[2020-05-15] MEDS: FUROSEMIDE 40 MG/4 ML VIAL IV SCH (18:27)
[2020-05-15] MEDS: PROMETHAZINE HCL 25 MG/ML 1ML IV PRN (18:56)
[2020-05-15] MEDS: ATORVASTATIN 20 MG TAB PO SCH (21:53)
[2020-05-16] MEDS: IPRATROPIUM BROM 0.5 MG/2.5ML INH SOL NEB SCH ×3 (00:20→11:03)
[2020-05-16] MEDS: LEVALBUTEROL HCL 1.25 MG/3 ML NEB NEB SCH ×3 (00:20→11:03)
[2020-05-16 05:00] VITALS: BP 116/74
[2020-05-16] MEDS: SODIUM CHLOR 0.9% PF (SALINE LOCK) 10ML VIAL/SYR IV SCH (06:36)
[2020-05-16] MEDS: FUROSEMIDE 40 MG/4 ML VIAL IV SCH (06:45)
[2020-05-16 08:12] LABS: Potassium 4.1 mmol/L (3.5-5.1)
[2020-05-16 08:23] LABS: BUN/Creatinine Ratio 26.7; Calcium 7.9 mg/dL (8.5-10.1)
[2020-05-16 09:00] VITALS: BP 129/74
[2020-05-16] MEDS: ASPirin 81 mg TAB PO SCH (09:50)
[2020-05-16] MEDS: POTASSIUM CHL 10 Meq TABLET PO SCH (09:50)
[2020-05-16] MEDS: ENALAPRIL MALEATE 2.5 MG TAB PO SCH (09:51)
[2020-05-16] MEDS: ENOXAPARIN SOD 40 MG/0.4 ML SYRINGE SC SCH (09:52)
[2020-05-16] MEDS: NITROGLYCERIN 0.2MG/HR TOPICAL PATCH TD SCH (09:53)
[2020-05-16] MEDS ORDERED: DIGOXIN 0.25 MG TAB PO SCH (10:00)
[2020-05-16] MEDS: CARVEDILOL 3.125 MG TAB PO SCH (10:00)
[2020-05-16] MEDS ORDERED: ENAL2.5T7 PO (12:07)
[2020-05-16] MEDS ORDERED: CAR3125T PO (12:07)
[2020-05-16] MEDS ORDERED: FURO40TA4 PO (12:07)
[2020-05-16] MEDS ORDERED: POTA-167 PO (12:07)
[2020-05-16] MEDS ORDERED: DIGO0.1220 PO (12:10)
[2020-05-16 13:00] VITALS: BP 109/66
[2020-05-16 14:59] VITALS: BP 109/68
[2020-05-16 17:00] VITALS: BP 114/69
== END 2020-05-16 17:25 | disposition home or self-care (01) | DRG 194 ==
LOC: ER 03:36 → TELE 03:37 → TELE-CENTR 18:57
PROVIDERS: ADMIT Internal Medicine; ATTEND Internal Medicine
DX: I11.0 Hypertensive heart disease with heart failure (principal); I50.43 Acute on chronic combined systolic (congestive) and diastolic (congestive) heart failure; I21.A1 Myocardial infarction type 2; J96.00 Acute respiratory failure, unspecified whether with hypoxia or hypercapnia; J44.9 Chronic obstructive pulmonary disease, unspecified; I42.7 Cardiomyopathy due to drug and external agent; E66.3 Overweight; F12.90 Cannabis use, unspecified, uncomplicated; F15.90 Other stimulant use, unspecified, uncomplicated; F17.210 Nicotine dependence, cigarettes, uncomplicated; I36.1 Nonrheumatic tricuspid (valve) insufficiency; Z20.822 Contact with and (suspected) exposure to COVID-19; Z80.42 Family history of malignant neoplasm of prostate; Z82.49 Family history of ischemic heart disease and other diseases of the circulatory system; Z83.3 Family history of diabetes mellitus; Z91.19 Patient's noncompliance with other medical treatment and regimen; Z68.28 Body mass index [BMI] 28.0-28.9, adult
CPT/HCPCS: 36415; 71045; 71275; 76705; 80048; 80053; 80061; 80307; 81001; 82550; 82728; 83735; 83880; 84484; 85025; 85379; 85610; 85730; 87081; 87426; 93005; 94640; 96372; 96374; 96375; 96376; G0378; J2405

== ENCOUNTER 2020-06-30 14:10 | Emergency (ER) | payer MEDICAID, OTHER ==
[~2020-06-30] VITALS: Ht 177.8 cm; Wt 81.6 kg
[~2020-06-30 14:10] MED LIST: CAR3125T PO; DIGO0.1220 PO; ENAL2.5T7 PO; FURO40TA4 PO; POTA-167 PO
[2020-06-30 17:24] VITALS: BP 135/94
== END 2020-06-30 17:26 | disposition home or self-care (01) ==
LOC: ER 14:10
DX: I50.9 Heart failure, unspecified (principal); F17.210 Nicotine dependence, cigarettes, uncomplicated; Z76.0 Encounter for issue of repeat prescription; Z79.899 Other long term (current) drug therapy

== ENCOUNTER 2020-09-01 08:21 | Emergency (ER) | payer OTHER ==
[~2020-09-01] VITALS: Ht 180.3 cm; Wt 81.6 kg
[2020-09-01 08:41] VITALS: BP 141/98
== END 2020-09-01 09:03 | disposition home or self-care (01) ==
LOC: ER 08:21
DX: I50.9 Heart failure, unspecified (principal); F17.210 Nicotine dependence, cigarettes, uncomplicated; F12.10 Cannabis abuse, uncomplicated; F15.10 Other stimulant abuse, uncomplicated; Z76.0 Encounter for issue of repeat prescription
CPT/HCPCS: 93005

== ENCOUNTER 2023-01-27 19:33 | Inpatient (IN) | payer SELFPAY ==
[~2023-01-27] VITALS: Ht 180.3 cm; Wt 75.3 kg
[~2023-01-27 19:33] MED LIST changes: -DIGO0.1220 PO; +DIGO125T11 PO; +ENAL1TAB42 PO; -ENAL2.5T7 PO; -POTA-167 PO; +POTA-211 PO
[2023-01-27 20:50] LABS: Basophils # (auto) 0 10 ^3/uL (0-0.2); Basophils % (auto) 0.4 % (0.0-2.0); Eosinophils # (auto) 0.1 10 ^3/uL (0-0.8); Eosinophils % (auto) 1.3 % (0.0-7.0); Hemoglobin 12.8 g/dL (13.5-17.5); Lymphocytes # (auto) 0.6 10 ^3/uL (0.4-5.4); Lymphocytes % (auto) 7.8 % (10.0-50.0); Mean Corpuscular Hemoglobin 29.5 pg (28.0-32.0); Mean Corpuscular Hgb Conc. 32.9 g/dL (32.0-36.0); Mean Corpuscular Volume 89.8 fL (80.0-100.0); Monocytes # (auto) 0.7 10 ^3/uL (0-1.3); Monocytes % (auto) 8.3 % (0.0-12.0); Neutrophils # (auto) 6.7 10 ^3/uL (1.6-8.6); Neutrophils % (auto) 82.2 % (37.0-80.0); Nucleated Red Blood Cells % 0.1 %; Red Blood Cells 4.34 10^6/uL (4.5-5.90); White Blood Cell 8.1 10^3/uL (4.4-10.8)
[2023-01-27 21:06] LABS: Alanine Aminotransferase 30 U/L (7-40); Albumin 3.7 g/dL (3.2-4.8); Alkaline Phosphatase 62 U/L (46-116); Anion Gap 6 (5-15); Aspartate Aminotransferase 18 U/L (13-40); BUN/Creatinine Ratio 20.4 (10.0-20.0); Blood Urea Nitrogen 19 mg/dL (9-23); Calcium 8.4 mg/dL (8.7-10.4); Carbon Dioxide 26 mmol/L (20-30); Chloride 105 mmol/L (98-107); Glucose 116 mg/dL (74-106); Magnesium 1.7 mg/dL (1.6-2.6); Potassium 4.2 mmol/L (3.5-5.1); Sodium 137 mmol/L (136-145)
[2023-01-27 21:07] LABS: Bilirubin, Total 1.9 mg/dL (0.2-1.0); Total Protein 6.1 g/dL (5.7-8.2)
[2023-01-28] MEDS ORDERED: ONDANSETRON HCL 4 MG/2 ML VIAL IV ONE (00:30)
[2023-01-28] MEDS ORDERED: FUROSEMIDE 40 MG/4 ML VIAL IV ONE (00:30)
[2023-01-28] MEDS ORDERED: MORPHINE SULFATE 4 MG/ML SYR/VIAL IV ONE (00:30)
[2023-01-28] MEDS ORDERED: ASPirin-EC 325mg tab PO ONE (00:30)
[2023-01-28 01:55] VITALS: PULSE 108; RESP 25; O2SAT 95
[2023-01-28] MEDS ORDERED: ENOXAPARIN SOD 80 MG/0.8ML SYRINGE SC ONE (05:00)
[2023-01-28] MEDS: FUROSEMIDE 100 MG/10ML VIAL IV ONE ×2 (05:09→05:19)
[2023-01-28] MEDS ORDERED: HYDROcodone-ACET 5/325MG TAB PO PRN (07:15)
[2023-01-28] MEDS ORDERED: ACETAMINOPHEN 325 MG TAB PO PRN (07:15)
[2023-01-28] MEDS ORDERED: DOCUSATE SOD 100 MG CAP PO PRN (07:15)
[2023-01-28] MEDS ORDERED: MORPHINE SULFATE INJ 2 MG/ml SYRG IV PRN (07:15)
[2023-01-28] MEDS ORDERED: NITROGLYCERIN 0.4 MG SL TAB SL PRN (07:15)
[2023-01-28] MEDS ORDERED: ONDANSETRON HCL 4 MG/2 ML VIAL IV PRN (07:15)
[2023-01-28 07:40] LABS: Basophils # (auto) 0 10 ^3/uL (0-0.2); Basophils % (auto) 0.5 % (0.0-2.0); Eosinophils # (auto) 0.2 10 ^3/uL (0-0.8); Eosinophils % (auto) 2.7 % (0.0-7.0); Hematocrit 42.6 % (41.0-53.0); Hemoglobin 13.9 g/dL (13.5-17.5); Lymphocytes # (auto) 0.9 10 ^3/uL (0.4-5.4); Lymphocytes % (auto) 14.6 % (10.0-50.0); Mean Corpuscular Hemoglobin 29.3 pg (28.0-32.0); Mean Corpuscular Hgb Conc. 32.6 g/dL (32.0-36.0); Mean Corpuscular Volume 89.8 fL (80.0-100.0); Monocytes # (auto) 0.8 10 ^3/uL (0-1.3); Monocytes % (auto) 12.1 % (0.0-12.0); Neutrophils # (auto) 4.4 10 ^3/uL (1.6-8.6); Neutrophils % (auto) 70.1 % (37.0-80.0); Nucleated Red Blood Cells % 0.1 %; Red Blood Cells 4.75 10^6/uL (4.5-5.90); Red Cell Distribution Width 13.9 % (11.8-14.3); White Blood Cell 6.2 10^3/uL (4.4-10.8)
[2023-01-28 08:13] LABS: Alanine Aminotransferase 26 U/L (7-40); Alkaline Phosphatase 62 U/L (46-116); Anion Gap 6 (5-15); Aspartate Aminotransferase 17 U/L (13-40); BUN/Creatinine Ratio 15.2 (10.0-20.0); Blood Urea Nitrogen 16 mg/dL (9-23); Calcium 8.7 mg/dL (8.5-10.1); Carbon Dioxide 28 mmol/L (20-30); Chloride 103 mmol/L (98-107); Glucose 92 mg/dL (74-106); Potassium 3.8 mmol/L (3.5-5.1); Sodium 137 mmol/L (136-145)
[2023-01-28 08:14] LABS: Albumin 3.8 g/dL (3.2-4.8); Bilirubin, Total 1.1 mg/dL (0.2-1.0); Total Protein 6.7 g/dL (5.7-8.2)
[2023-01-28 08:47] LABS: Amphetamine Screen, Urine Pos (NEGATIVE); Barbiturate Scree,Urine Neg (NEGATIVE); Benzodiazephine Screen, Urine Neg (NEGATIVE); Cannabinoid Screen, Urine Pos (NEGATIVE); Cocaine Screen, Urine Neg (NEGATIVE); Opiate Scree,Urine Neg (NEGATIVE); Phencyclidine Screen, Urine Neg (NEGATIVE)
[2023-01-28] MEDS ORDERED: ASPirin 81 mg TAB PO SCH (10:00)
[2023-01-28] MEDS ORDERED: FUROSEMIDE 40 MG/4 ML VIAL IV SCH (10:00)
[2023-01-28] MEDS: SODIUM CHLOR 0.9% PF (SALINE LOCK) 10ML VIAL/SYR IV SCH ×2 (14:00→21:53)
[2023-01-28] MEDS ORDERED: BUMETANIDE 2.5mg/10ml (0.25 mg/ml) INJ IV ONE (18:45)
[2023-01-28 19:30] VITALS: PULSE 117; RESP 18; O2SAT 98
[2023-01-28 21:43] VITALS: BP 113/45; PULSE 108; RESP 16; TEMP 97.6; O2SAT 98
[2023-01-28] MEDS: METOPROLOL TARTRATE 25 MG TAB PO SCH (21:52)
[2023-01-28 22:00] VITALS: BP 113/45; PULSE 108; RESP 16; TEMP 97.6; O2SAT 98
[2023-01-28] MEDS ORDERED: CARVEDILOL 3.125 MG TAB PO SCH (22:00)
[2023-01-28 22:07] LABS: Urine Bacteria NONE SEEN /hpf (None Seen); Urine Blood Negative /uL (Negative); Urine Clarity Clear (Clear); Urine Color Yellow (Yellow); Urine Protein, UAD TRACE (Negative); Urine Specific Gravity 1.027 (1.001-1.035); Urine WBC <1 /hpf (0 - 3); Urine pH 6.5 (5.0-8.0)
[2023-01-29] VITALS (9 sets, daily range): BP systolic 91–101; BP diastolic 50–72; PULSE 81–111; RESP 16–20; TEMP 97.7–98.3; O2SAT 97–100
[2023-01-29] MEDS: SODIUM CHLOR 0.9% PF (SALINE LOCK) 10ML VIAL/SYR IV SCH ×3 (05:51→21:13)
[2023-01-29] MEDS ORDERED: BUMETANIDE 2.5mg/10ml (0.25 mg/ml) INJ IV SCH (06:00)
[2023-01-29] MEDS: EMPAGLIFLOZIN 10 MG TAB PO SCH (06:02)
[2023-01-29 06:48] LABS: Basophils # (auto) 0 10 ^3/uL (0-0.2); Basophils % (auto) 0.3 % (0.0-2.0); Eosinophils # (auto) 0.2 10 ^3/uL (0-0.8); Eosinophils % (auto) 1.9 % (0.0-7.0); Hematocrit 44.6 % (41.0-53.0); Hemoglobin 14.7 g/dL (13.5-17.5); Lymphocytes # (auto) 1.2 10 ^3/uL (0.4-5.4); Lymphocytes % (auto) 14.9 % (10.0-50.0); Mean Corpuscular Hemoglobin 29.7 pg (28.0-32.0); Mean Corpuscular Hgb Conc. 32.9 g/dL (32.0-36.0); Mean Corpuscular Volume 90.2 fL (80.0-100.0); Monocytes # (auto) 0.8 10 ^3/uL (0-1.3); Monocytes % (auto) 10.1 % (0.0-12.0); Neutrophils # (auto) 5.7 10 ^3/uL (1.6-8.6); Neutrophils % (auto) 72.8 % (37.0-80.0); Nucleated Red Blood Cells % 0.2 %; Red Blood Cells 4.94 10^6/uL (4.5-5.90); Red Cell Distribution Width 13.9 % (11.8-14.3); White Blood Cell 7.8 10^3/uL (4.4-10.8)
[2023-01-29 07:01] LABS: Alanine Aminotransferase 23 U/L (7-40); Alkaline Phosphatase 61 U/L (46-116); Anion Gap 7 (5-15); Aspartate Aminotransferase 18 U/L (13-40); Bilirubin, Total 0.9 mg/dL (0.2-1.0); Blood Urea Nitrogen 20 mg/dL (9-23); Carbon Dioxide 26 mmol/L (20-30); Chloride 104 mmol/L (98-107); Cholesterol 126 mg/dL (< 200); Glucose 88 mg/dL (74-106); HDL Cholesterol 22 mg/dL (40-59); INR 1.13 (0.9-1.15); LDL Cholesterol 97 mg/dL (< 100); Potassium 4.6 mmol/L (3.5-5.1); Prothrombin Time 11.8 sec (9.3-11.8); Sodium 137 mmol/L (136-145); Total Protein 6.9 g/dL (5.7-8.2); Triglycerides 69 mg/dL (< 150)
[2023-01-29 08:49] LABS: Magnesium 2.1 mg/dL (1.6-2.6)
[2023-01-29] MEDS: LISINOPRIL 5 MG TAB PO SCH (10:00)
[2023-01-29] MEDS: METOPROLOL TARTRATE 25 MG TAB PO SCH ×2 (10:00→21:14)
[2023-01-29] MEDS: ENOXAPARIN SOD 40 MG/0.4 ML SYRINGE SC SCH (11:18)
[2023-01-29] MEDS: SPIRONOLACTONE 25 MG TAB PO SCH (11:18)
[2023-01-29] MEDS ORDERED: FUROSEMIDE 40 MG/4 ML VIAL IV ONE (12:15)
[2023-01-29] MEDS: BUMETANIDE 2.5mg/10ml (0.25 mg/ml) INJ IV SCH (18:39)
[2023-01-30 05:00] VITALS: BP 103/63; PULSE 51; RESP 18; TEMP 97.7; O2SAT 96
[2023-01-30] MEDS: BUMETANIDE 2.5mg/10ml (0.25 mg/ml) INJ IV SCH (06:03)
[2023-01-30] MEDS: EMPAGLIFLOZIN 10 MG TAB PO SCH (06:03)
[2023-01-30] MEDS: SODIUM CHLOR 0.9% PF (SALINE LOCK) 10ML VIAL/SYR IV SCH (06:06)
[2023-01-30 06:44] LABS: Basophils # (auto) 0 10 ^3/uL (0-0.2); Basophils % (auto) 0.6 % (0.0-2.0); Eosinophils # (auto) 0.2 10 ^3/uL (0-0.8); Eosinophils % (auto) 2.2 % (0.0-7.0); Hematocrit 47.3 % (41.0-53.0); Hemoglobin 16.1 g/dL (13.5-17.5); Lymphocytes # (auto) 1.4 10 ^3/uL (0.4-5.4); Lymphocytes % (auto) 19.6 % (10.0-50.0); Mean Corpuscular Hemoglobin 30.1 pg (28.0-32.0); Mean Corpuscular Volume 88.6 fL (80.0-100.0); Monocytes # (auto) 0.8 10 ^3/uL (0-1.3); Monocytes % (auto) 10.8 % (0.0-12.0); Neutrophils # (auto) 4.7 10 ^3/uL (1.6-8.6); Neutrophils % (auto) 66.8 % (37.0-80.0); Nucleated Red Blood Cells % 0.2 %; Red Blood Cells 5.34 10^6/uL (4.5-5.90); Red Cell Distribution Width 13.9 % (11.8-14.3); White Blood Cell 7.1 10^3/uL (4.4-10.8)
[2023-01-30 07:13] LABS: Anion Gap 7 (5-15); Calcium 9.3 mg/dL (8.7-10.4); Carbon Dioxide 27 mmol/L (20-30); Chloride 98 mmol/L (98-107); Potassium 4.1 mmol/L (3.5-5.1)
[2023-01-30 07:18] LABS: Glucose 99 mg/dL (74-106)
[2023-01-30 07:19] LABS: BUN/Creatinine Ratio 25.9 (10.0-20.0); Blood Urea Nitrogen 22 mg/dL (9-23)
[2023-01-30 07:20] LABS: Magnesium 2.2 mg/dL (1.6-2.6)
[2023-01-30 07:30] LABS: Sodium 132 mmol/L (136-145)
[2023-01-30 08:00] VITALS: PULSE 94
[2023-01-30 08:15] VITALS: PULSE 100; RESP 99
[2023-01-30 09:08] VITALS: BP 113/66; PULSE 100; RESP 18; TEMP 97.5; O2SAT 99
[2023-01-30] MEDS: LISINOPRIL 5 MG TAB PO SCH (09:40)
[2023-01-30] MEDS: METOPROLOL TARTRATE 25 MG TAB PO SCH ×3 (09:40→12:09)
[2023-01-30] MEDS: SPIRONOLACTONE 25 MG TAB PO SCH (09:41)
[2023-01-30] MEDS: ENOXAPARIN SOD 40 MG/0.4 ML SYRINGE SC SCH (10:00)
[2023-01-30] MEDS ORDERED: EMPA1TAB PO (10:12)
[2023-01-30] MEDS ORDERED: LISI-275 PO (10:12)
[2023-01-30] MEDS ORDERED: SPIR25TA PO (10:12)
== END 2023-01-30 11:52 | disposition home or self-care (01) | DRG 280 ==
LOC: ER 19:33 → TELE 01-28 07:05 → TELE-EAST 01-28 21:18
PROVIDERS: ADMIT Internal Medicine Pulmonary Disease; ATTEND Internal Medicine Pulmonary Disease
DX: I50.23 Acute on chronic systolic (congestive) heart failure (principal); I21.A1 Myocardial infarction type 2; J96.21 Acute and chronic respiratory failure with hypoxia; I42.7 Cardiomyopathy due to drug and external agent; E44.1 Mild protein-calorie malnutrition; Z59.00 Homelessness unspecified; F15.10 Other stimulant abuse, uncomplicated; T50.905A Adverse effect of unspecified drugs, medicaments and biological substances, initial encounter; I34.0 Nonrheumatic mitral (valve) insufficiency; F17.210 Nicotine dependence, cigarettes, uncomplicated; Z83.3 Family history of diabetes mellitus; Z80.42 Family history of malignant neoplasm of prostate; Z91.199 Patient's noncompliance with other medical treatment and regimen due to unspecified reason; Z82.49 Family history of ischemic heart disease and other diseases of the circulatory system; Z68.23 Body mass index [BMI] 23.0-23.9, adult; Y92.89 Other specified places as the place of occurrence of the external cause
CPT/HCPCS: 36415; 71045; 80048; 80053; 80061; 80307; 81001; 83735; 83880; 84443; 84484; 85025; 85610; 93005; 93306; 96372; 96374; 96376; 99291; G0378; J2405

== ENCOUNTER 2023-03-15 19:46 | Inpatient (IN) | payer MEDICAID ==
[~2023-03-15] VITALS: Ht 180.3 cm; Wt 93.6 kg
[~2023-03-15 19:46] MED LIST changes: -DIGO125T11 PO; +EMPA1TAB PO; -ENAL1TAB42 PO; +LISI-275 PO; +SPIR25TA PO
[2023-03-15 20:12] LABS: Basophils # (auto) 0 10 ^3/uL (0-0.2); Basophils % (auto) 0.3 % (0.0-2.0); Eosinophils # (auto) 0 10 ^3/uL (0-0.8); Eosinophils % (auto) 0.5 % (0.0-7.0); Hematocrit 41.6 % (41.0-53.0); Hemoglobin 13.4 g/dL (13.5-17.5); Lymphocytes # (auto) 0.7 10 ^3/uL (0.4-5.4); Mean Corpuscular Hemoglobin 29.7 pg (28.0-32.0); Mean Corpuscular Hgb Conc. 32.2 g/dL (32.0-36.0); Mean Corpuscular Volume 92.2 fL (80.0-100.0); Monocytes # (auto) 0.6 10 ^3/uL (0-1.3); Monocytes % (auto) 7.5 % (0.0-12.0); Neutrophils # (auto) 6.8 10 ^3/uL (1.6-8.6); Neutrophils % (auto) 83.7 % (37.0-80.0); Nucleated Red Blood Cells % 0.1 %; Red Blood Cells 4.51 10^6/uL (4.5-5.90); Red Cell Distribution Width 15.8 % (11.8-14.3); White Blood Cell 8.1 10^3/uL (4.4-10.8)
[2023-03-15 20:20] LABS: Chloride 103 mmol/L (98-107); Potassium 4.7 mmol/L (3.5-5.1); Sodium 137 mmol/L (136-145)
[2023-03-15 20:21] LABS: Anion Gap 6 (5-15); Carbon Dioxide 28 mmol/L (20-30)
[2023-03-15 20:22] LABS: Calcium 8.9 mg/dL (8.5-10.1)
[2023-03-15 20:27] LABS: BUN/Creatinine Ratio 15.9 (10.0-20.0); Blood Urea Nitrogen 17 mg/dL (9-23); Glucose 113 mg/dL (74-106)
[2023-03-15] MEDS: ONDANSETRON HCL 4 MG/2 ML VIAL IV ONE (20:45)
[2023-03-15] MEDS: FUROSEMIDE 40 MG/4 ML VIAL IV ONE (20:46)
[2023-03-15 20:47] VITALS: PULSE 138; RESP 17; O2SAT 98
[2023-03-15] MEDS ORDERED: DOCUSATE SOD 100 MG CAP PO PRN (21:30)
[2023-03-15] MEDS ORDERED: ACETAMINOPHEN 325 MG TAB PO PRN (21:30)
[2023-03-15] MEDS ORDERED: hydrALAZINE HCL 20 MG/ML VL IV PRN (21:30)
[2023-03-15] MEDS ORDERED: HYDROcodone-ACET 5/325MG TAB PO PRN (21:30)
[2023-03-15] MEDS: SODIUM CHLOR 0.9% PF (SALINE LOCK) 10ML VIAL/SYR IV SCH (22:12)
[2023-03-15] MEDS: CARVEDILOL 3.125 MG TAB PO SCH (22:12)
[2023-03-15] MEDS: AMIODARONE BOLUS KIT 100 ML IV ONE (22:13)
[2023-03-15] MEDS: AMIODARONE 450mg/250ml AE 250 ML IV SCH (22:49)
[2023-03-15] MEDS ORDERED: NITROGLYCERIN 0.4 MG SL TAB SL PRN (23:45)
[2023-03-15] MEDS ORDERED: MORPHINE SULFATE INJ 2 MG/ml SYRG IV PRN (23:45)
[2023-03-16] VITALS (59 sets, daily range): BP systolic 55–168; BP diastolic 22–107; PULSE 49–113; RESP 16–36; TEMP 97.5–100.1; O2SAT 92–100
[2023-03-16 01:55] LABS: Amphetamine Screen, Urine Pos (NEGATIVE); Barbiturate Scree,Urine Neg (NEGATIVE); Benzodiazephine Screen, Urine Neg (NEGATIVE); Cocaine Screen, Urine Neg (NEGATIVE)
[2023-03-16 01:56] LABS: Cannabinoid Screen, Urine Pos (NEGATIVE); Opiate Scree,Urine Neg (NEGATIVE); Phencyclidine Screen, Urine Neg (NEGATIVE)
[2023-03-16] MEDS: TEMAZEPAM 15 MG CAP PO ONE (02:33)
[2023-03-16 05:17] LABS: Alanine Aminotransferase 122 U/L (7-40); Blood Urea Nitrogen 24 mg/dL (9-23); Calcium 8.6 mg/dL (8.7-10.4); Potassium 5.5 mmol/L (3.5-5.1); Sodium 133 mmol/L (136-145); Total Protein 7.5 g/dL (5.7-8.2)
[2023-03-16 05:29] LABS: Albumin 4.1 g/dL (3.2-4.8); Alkaline Phosphatase 65 U/L (46-116); Anion Gap 11 (5-15); Aspartate Aminotransferase 137 U/L (13-40); BUN/Creatinine Ratio 18.5 (10.0-20.0); Bilirubin, Total 4.2 mg/dL (0.2-1.0); Carbon Dioxide 22 mmol/L (20-30); Chloride 100 mmol/L (98-107); Glucose 84 mg/dL (74-106)
[2023-03-16 06:56] LABS: Mean Corpuscular Hemoglobin 28.8 pg (28.0-32.0); Monocytes # (auto) 1.2 10 ^3/uL (0-1.3); Red Cell Distribution Width 16.6 % (11.8-14.3)
[2023-03-16 07:11] LABS: Basophils # (auto) 0 10 ^3/uL (0-0.2); Basophils % (auto) 0.4 % (0.0-2.0); Eosinophils # (auto) 0 10 ^3/uL (0-0.8); Eosinophils % (auto) 0.1 % (0.0-7.0); Hematocrit 40.9 % (41.0-53.0); Lymphocytes # (auto) 1.3 10 ^3/uL (0.4-5.4); Lymphocytes % (auto) 10.4 % (10.0-50.0); Mean Corpuscular Hgb Conc. 29.3 g/dL (32.0-36.0); Mean Corpuscular Volume 98.5 fL (80.0-100.0); Monocytes % (auto) 9.3 % (0.0-12.0); Neutrophils # (auto) 10.2 10 ^3/uL (1.6-8.6); Neutrophils % (auto) 79.8 % (37.0-80.0); Nucleated Red Blood Cells % 0.1 %; Red Blood Cells 4.15 10^6/uL (4.5-5.90); White Blood Cell 12.8 10^3/uL (4.4-10.8)
[2023-03-16] MEDS: DEXTROSE (50%) 50ML SYRG IV ONE ×3 (07:17→22:39)
[2023-03-16] MEDS: CALCIUM GLUC 1,000mg/50ml-NS 50 ML IV ONE ×2 (07:26→22:22)
[2023-03-16] MEDS: SODIUM ZIRCONIUM CYCL 10 GM PAK PO ONE ×2 (07:28→22:32)
[2023-03-16] MEDS: InsuLIN REG 1unit/0.01ml Soln (100units/ml) IV ONE ×2 (07:52→22:36)
[2023-03-16] MEDS: MAGNESIUM SULFATE 1GM/100ML 200 ML IV ONE (08:04)
[2023-03-16 08:06] LABS: Chloride 101 mmol/L (98-107); Sodium 131 mmol/L (136-145)
[2023-03-16] MEDS: AMIODARONE 450mg/250ml AE 250 ML IV ONE (08:06)
[2023-03-16] MEDS: MAGNESIUM SULFATE 1GM/100ML 100 ML IV SCH (08:06)
[2023-03-16 08:07] LABS: Anion Gap 13 (5-15); Carbon Dioxide 17 mmol/L (20-30)
[2023-03-16] MEDS: AMIODARONE 450mg/250ml AE 250 ML IV SCH ×2 (08:07→13:32)
[2023-03-16] MEDS: ONDANSETRON HCL 4 MG/2 ML VIAL IV PRN (08:11)
[2023-03-16 08:13] LABS: BUN/Creatinine Ratio 12.1 (10.0-20.0); Blood Urea Nitrogen 20 mg/dL (9-23)
[2023-03-16 08:23] LABS: Glucose 214 mg/dL (74-106); Potassium 6.4 mmol/L (3.5-5.1)
[2023-03-16 08:31] LABS: Amphetamine Screen, Urine Pos (NEGATIVE); Barbiturate Scree,Urine Neg (NEGATIVE); Benzodiazephine Screen, Urine Neg (NEGATIVE); Cannabinoid Screen, Urine Pos (NEGATIVE); Cocaine Screen, Urine Neg (NEGATIVE); Opiate Scree,Urine Neg (NEGATIVE); Phencyclidine Screen, Urine Neg (NEGATIVE)
[2023-03-16] MEDS: SODIUM BICARB 8.4% 50Meq/50ml SYR Vial IV ONE ×2 (08:45→22:28)
[2023-03-16] MEDS: POTASSIUM CHL 10 Meq TABLET PO SCH (09:53)
[2023-03-16] MEDS: FUROSEMIDE 40 MG/4 ML VIAL IV SCH (10:03)
[2023-03-16] MEDS: ENOXAPARIN SOD 40 MG/0.4 ML SYRINGE SC SCH (10:04)
[2023-03-16 10:52] LABS: COVID19 ANTIGEN SOFIA FIA NEGATIVE (NEGATIVE)
[2023-03-16 11:00] LABS: Potassium 5.3 mmol/L (3.5-5.1)
[2023-03-16 11:53] LABS: Magnesium 2.5 mg/dL (1.6-2.6)
[2023-03-16] MEDS ORDERED: LORazepam 2MG/ML-1ML VIAL IV PRN ×2 (13:15→18:00)
[2023-03-16 13:25] LABS: Base Excess -11.3 mmol/L (-2.0-2.0)
[2023-03-16] MEDS: NOREPINEPHRINE 8 MG/250ML KIT 250 ML IV ONE (16:37)
[2023-03-16] MEDS: NOREPINEPHRINE 8 MG/250ML KIT 250 ML IV SCH (16:38)
[2023-03-16] MEDS: ETOMIDATE (2MG/ML) 20ML VIAL IV ONE ×2 (17:46→18:00)
[2023-03-16] MEDS: MIDAZOLAM DRIP 50 mg/50mL 50 ML IV ONE (17:57)
[2023-03-16] MEDS ORDERED: MORPHINE SULFATE 4 MG/ML SYR/VIAL IV PRN (18:00)
[2023-03-16] MEDS: PROPOFOL 100 ML IV SCH (18:00)
[2023-03-16] MEDS ORDERED: MIDAZOLAM HCL 5 MG/ML-1ML VIAL IM ONE (18:00)
[2023-03-16] MEDS: MIDAZOLAM HCL 5 MG/ML-1ML VIAL IV ONE (18:03)
[2023-03-16] MEDS: MIDAZOLAM HCL 2MG/2ML 2ml VIAL (1mg/ml) IV ONE (18:05)
[2023-03-16] MEDS: MIDAZOLAM DRIP 50 mg/50mL 50 ML IV SCH (18:05)
[2023-03-16] MEDS: fentaNYL Drip 2500mCg/250mlNS 250 ML IV SCH (18:31)
[2023-03-16] MEDS ORDERED: VANCOMYCIN PER PHARMACY 0 MG IV SCH (18:45)
[2023-03-16] MEDS: EPINEPHrine HCL 250 ML IV SCH (18:45)
[2023-03-16] MEDS: VASOPRESSIN 20 UNITS in SODIUM CHL 0.9% 99 ML IV SCH (18:45)
[2023-03-16] MEDS: ALBUTEROL SULF 2.5 MG/0.5ML(0.5%) NEB SOLN NEB PRN (18:58)
[2023-03-16] MEDS: IPRATROPIUM BROM 0.5 MG/2.5ML INH SOL NEB SCH (18:58)
[2023-03-16 19:24] LABS: Amphetamine Screen, Urine Pos (NEGATIVE); Barbiturate Scree,Urine Neg (NEGATIVE); Benzodiazephine Screen, Urine Neg (NEGATIVE); Cannabinoid Screen, Urine Pos (NEGATIVE); Cocaine Screen, Urine Neg (NEGATIVE); Opiate Scree,Urine Neg (NEGATIVE); Phencyclidine Screen, Urine Neg (NEGATIVE)
[2023-03-16 19:39] LABS: Chloride 94 mmol/L (98-107); Sodium 129 mmol/L (136-145)
[2023-03-16 19:40] LABS: Anion Gap 19 (5-15); Calcium 7.6 mg/dL (8.7-10.4); Carbon Dioxide 16 mmol/L (20-30)
[2023-03-16 19:45] LABS: BUN/Creatinine Ratio 16.9 (10.0-20.0)
[2023-03-16 19:49] LABS: Blood Urea Nitrogen 48 mg/dL (9-23); Potassium 6.5 mmol/L (3.5-5.1)
[2023-03-16 19:51] LABS: Glucose 16 mg/dL (74-106)
[2023-03-16] MEDS: DEXTROSE 50% SYRINGE 50 ML IV ONE (20:02)
[2023-03-16] MEDS: ALBUMIN 25% 100 ML IV SCH (20:27)
[2023-03-16 21:08] LABS: Base Excess -12.3 mmol/L (-2.0-2.0)
[2023-03-16] MEDS: VANCOMYCIN 1GM/200ML 200 ML IV ONE (21:16)
[2023-03-16] MEDS: ALBUTEROL SULF 2.5 MG/0.5ML(0.5%) NEB SOLN NEB ONE ×2 (22:00→22:10)
[2023-03-16] MEDS: PIPERACILLIN-TAZOB 3.375GM 100 ML IV ONE (22:24)
[2023-03-16] MEDS: SODIUM BICARB 50mEq/50ml Vial 100 ML in D5W 5% 1,000 ML IV ONE (23:00)
[2023-03-17] VITALS (107 sets, daily range): BP systolic 72–126; BP diastolic 18–72; PULSE 73–112; RESP 13–28; TEMP 98.3–100.9; O2SAT 60–100
[2023-03-17] MEDS: PIPERACILLIN-TAZOB 3.375GM 100 ML IV SCH (04:25)
[2023-03-17 04:52] LABS: Basophils # (auto) 0 10 ^3/uL (0-0.2); Eosinophils # (auto) 0 10 ^3/uL (0-0.8); Hemoglobin 11.6 g/dL (13.5-17.5); Lymphocytes # (auto) 0.5 10 ^3/uL (0.4-5.4); Monocytes # (auto) 0.7 10 ^3/uL (0-1.3); Nucleated Red Blood Cells % 0.1 %
[2023-03-17 04:54] LABS: Albumin 3.8 g/dL (3.2-4.8); Alkaline Phosphatase 65 U/L (46-116); Anion Gap 25 (5-15); BUN/Creatinine Ratio 14.2 (10.0-20.0); Bilirubin, Total 6.3 mg/dL (0.2-1.0); Blood Urea Nitrogen 54 mg/dL (9-23); Calcium 6.5 mg/dL (8.7-10.4); Carbon Dioxide 13 mmol/L (20-30); Chloride 90 mmol/L (98-107); Potassium 5.5 mmol/L (3.5-5.1); Sodium 128 mmol/L (136-145); Total Protein 6.5 g/dL (5.7-8.2)
[2023-03-17 04:54] LABS: Basophils % (auto) 0.2 % (0.0-2.0); Hematocrit 37.6 % (41.0-53.0); Lymphocytes % (auto) 2.3 % (10.0-50.0); Mean Corpuscular Hemoglobin 28.9 pg (28.0-32.0); Mean Corpuscular Hgb Conc. 30.8 g/dL (32.0-36.0); Mean Corpuscular Volume 94.1 fL (80.0-100.0); Neutrophils # (auto) 20.7 10 ^3/uL (1.6-8.6); Neutrophils % (auto) 94.5 % (37.0-80.0); Red Cell Distribution Width 16.2 % (11.8-14.3); White Blood Cell 21.9 10^3/uL (4.4-10.8)
[2023-03-17 05:13] LABS: Alanine Aminotransferase > 6000 U/L (7-40); Aspartate Aminotransferase > 6000 U/L (13-40); Glucose 196 mg/dL (74-106)
[2023-03-17 06:13] LABS: Platelet Estimate Decreased
[2023-03-17] MEDS: SODIUM ZIRCONIUM CYCL 10 GM PAK PO ONE (07:00)
[2023-03-17 07:02] LABS: Base Excess -13.9 mmol/L (-2.0-2.0)
[2023-03-17] MEDS ORDERED: cefTRIAXone 1GM/50ML D5W 50 ML IV SCH (09:00)
[2023-03-17] MEDS ORDERED: METO-289 PO (09:32)
[2023-03-17] MEDS ORDERED: DOBUTamine 1000MCG/ML 250 ML IV SCH ×3 (11:45→12:45)
[2023-03-17] MEDS ORDERED: NOREPINEPHRINE BITARTRATE 32 MG in SODIUM CHL 0.9% 218 ML IV SCH (12:00)
[2023-03-17] MEDS: MEROPENEM 1GM IVPB 50 ML IV ONE (12:02)
[2023-03-17] MEDS: DOBUTamine 1000MCG/ML 250 ML IV SCH (12:50)
[2023-03-17 13:19] LABS: Partial Thromboplastin Time 48.9 SEC (24.5-34.5); Prothrombin Time 48.6 sec (9.3-11.8)
[2023-03-17] MEDS: NOREPINEPHRINE BITARTRATE 32 MG in SODIUM CHL 0.9% 218 ML IV SCH (13:20)
[2023-03-17] MEDS: PANTOPRAZOLE 40mg/50ML NS AE 50 ML IV SCH (13:21)
[2023-03-17] MEDS: SODIUM BICARB 8.4% 50Meq/50ml SYR Vial IV ONE (13:28)
[2023-03-17 13:32] LABS: INR 5.15 (0.9-1.15)
[2023-03-17 13:52] LABS: Hepatitis B Surface Antigen Negative (Negative)
[2023-03-17 13:57] LABS: Hepatitis A Ab IgM Negative; Hepatitis B Core IgM Negative; Hepatitis C Antibody Negative (Negative)
[2023-03-17] MEDS: SODIUM BICARB 50mEq/50ml Vial 150 ML in D5W 5% 1,000 ML IV ONE (13:58)
[2023-03-17 14:07] LABS: Basophils # (auto) 0 10 ^3/uL (0-0.2); Basophils % (auto) 0.3 % (0.0-2.0); Eosinophils # (auto) 0 10 ^3/uL (0-0.8); Eosinophils % (auto) 0.1 % (0.0-7.0); Hematocrit 34.8 % (41.0-53.0); Hemoglobin 11.1 g/dL (13.5-17.5); Lymphocytes # (auto) 1.1 10 ^3/uL (0.4-5.4); Lymphocytes % (auto) 6.1 % (10.0-50.0); Mean Corpuscular Hemoglobin 29.2 pg (28.0-32.0); Mean Corpuscular Volume 91.4 fL (80.0-100.0); Monocytes # (auto) 0.6 10 ^3/uL (0-1.3); Monocytes % (auto) 3.5 % (0.0-12.0); Neutrophils # (auto) 16.1 10 ^3/uL (1.6-8.6); Nucleated Red Blood Cells % 0.1 %; Red Blood Cells 3.81 10^6/uL (4.5-5.90); White Blood Cell 17.9 10^3/uL (4.4-10.8)
[2023-03-17 14:48] LABS: Hepatitis A Total Antibody Positive (Negative); Hepatitis B Core Total AB Negative (Negative)
[2023-03-17 14:49] LABS: Hepatitis B Surface Antibody Negative (Negative); Hepatitis B Surface Antigen Negative (Negative); Hepatitis C Antibody Negative (Negative)
[2023-03-17] MEDS: DEXTROSE (50%) 50ML SYRG IV ONE (14:57)
[2023-03-17] MEDS: CALCIUM GLUC 1,000mg/50ml-NS 50 ML IV ONE (15:02)
[2023-03-17] MEDS: InsuLIN REG 1unit/0.01ml Soln (100units/ml) IV ONE (15:08)
[2023-03-17] MEDS: phytonadione 2.5 MG in SODIUM CHL 0.9% 50 ML IV ONE (17:37)
[2023-03-17 17:56] LABS: COVID19 ANTIGEN SOFIA FIA NEGATIVE (NEGATIVE); Rapid Influenza A Negative (Negative); Rapid Influenza B Negative (Negative)
[2023-03-17] MEDS: DEXTROSE (50%) 50ML SYRG IV PRN (18:40)
[2023-03-17] MEDS ORDERED: PANTOPRAZOLE 40 MG/10 ML VIAL INJ IV SCH (22:00)
[2023-03-18] VITALS (116 sets, daily range): BP systolic 74–119; BP diastolic 19–71; PULSE 67–110; RESP 13–29; TEMP 97.3–99.9; O2SAT 94–100
[2023-03-18 04:16] LABS: Basophils # (auto) 0.1 10 ^3/uL (0-0.2); Basophils % (auto) 0.7 % (0.0-2.0); Eosinophils # (auto) 0.1 10 ^3/uL (0-0.8); Eosinophils % (auto) 0.4 % (0.0-7.0); Hematocrit 37.5 % (41.0-53.0); Hemoglobin 12.1 g/dL (13.5-17.5); Lymphocytes # (auto) 0.4 10 ^3/uL (0.4-5.4); Mean Corpuscular Hemoglobin 29.4 pg (28.0-32.0); Mean Corpuscular Hgb Conc. 32.2 g/dL (32.0-36.0); Mean Corpuscular Volume 91.2 fL (80.0-100.0); Monocytes # (auto) 0.3 10 ^3/uL (0-1.3); Neutrophils # (auto) 13.5 10 ^3/uL (1.6-8.6); Neutrophils % (auto) 93.9 % (37.0-80.0); Nucleated Red Blood Cells % 0.1 %; Red Blood Cells 4.11 10^6/uL (4.5-5.90); Red Cell Distribution Width 15.5 % (11.8-14.3); White Blood Cell 14.4 10^3/uL (4.4-10.8)
[2023-03-18 04:43] LABS: % Iron Saturation 43.4 % (20-55)
[2023-03-18 04:57] LABS: Albumin 3.3 g/dL (3.2-4.8); Alkaline Phosphatase 73 U/L (46-116); Anion Gap 15 (5-15); BUN/Creatinine Ratio 10.8 (10.0-20.0); Bilirubin, Total 6.5 mg/dL (0.2-1.0); Blood Urea Nitrogen 60 mg/dL (9-23); Carbon Dioxide 23 mmol/L (20-30); Chloride 89 mmol/L (98-107); Magnesium 2.4 mg/dL (1.6-2.6); Phosphorus 10.4 mg/dL (2.4-5.1); Sodium 127 mmol/L (136-145); Total Protein 5.8 g/dL (5.7-8.2)
[2023-03-18 05:02] LABS: Alanine Aminotransferase > 6000 U/L (7-40); Aspartate Aminotransferase > 6000 U/L (13-40); Glucose 71 mg/dL (74-106); Potassium 6.2 mmol/L (3.5-5.1)
[2023-03-18 05:03] LABS: Calcium 5.1 mg/dL (8.7-10.4)
[2023-03-18] MEDS: SODIUM ZIRCONIUM CYCL 10 GM PAK PO ONE (07:00)
[2023-03-18] MEDS ORDERED: DEXTROSE (50%) 50ML SYRG IV ONE (07:00)
[2023-03-18] MEDS ORDERED: InsuLIN REG 1unit/0.01ml Soln (100units/ml) IV ONE (07:00)
[2023-03-18] MEDS ORDERED: CALCIUM GLUC 1,000mg/50ml-NS 50 ML IV ONE (07:00)
[2023-03-18] MEDS ORDERED: SODIUM BICARB 8.4% 50Meq/50ml SYR Vial IV ONE (07:00)
[2023-03-18 07:03] LABS: Urine Bacteria NONE SEEN /hpf (None Seen); Urine Blood 3+ /uL (Negative); Urine Clarity HAZY (Clear); Urine Color PINK (Yellow); Urine Protein, UAD 3+ (Negative); Urine Specific Gravity 1.022 (1.001-1.035); Urine Urobilinogen Normal (Negative); Urine WBC 6 /hpf (0 - 3)
[2023-03-18] MEDS: CALCIUM GLUC 1,000mg/50ml-NS 50 ML IV ONE ×3 (07:46→22:08)
[2023-03-18] MEDS: DEXTROSE (50%) 50ML SYRG IV ONE ×2 (07:46→22:07)
[2023-03-18] MEDS: SODIUM BICARB 8.4% 50Meq/50ml SYR Vial IV ONE ×3 (07:46→22:26)
[2023-03-18] MEDS: InsuLIN REG 1unit/0.01ml Soln (100units/ml) IV ONE ×2 (07:48→22:17)
[2023-03-18 08:04] LABS: Base Excess 0.2 mmol/L (-2.0-2.0)
[2023-03-18] MEDS: VANCOMYCIN 1GM/200ML 200 ML IV ONE (09:53)
[2023-03-18 09:56] LABS: Lactic Acid w/Reflex 3.5 mmol/L (0.4-2.0)
[2023-03-18] MEDS: LACTULOSE 20Gm/30ML SOLN PO SCH (09:58)
[2023-03-18] MEDS: MEROPENEM 1GM IVPB 50 ML IV SCH (11:06)
[2023-03-18 12:14] LABS: Albumin 3.1 g/dL (3.2-4.8); Alkaline Phosphatase 71 U/L (46-116); Anion Gap 12 (5-15); BUN/Creatinine Ratio 9.2 (10.0-20.0); Bilirubin, Total 6.4 mg/dL (0.2-1.0); Blood Urea Nitrogen 56 mg/dL (9-23); Carbon Dioxide 25 mmol/L (20-30); Chloride 91 mmol/L (98-107); Glucose 113 mg/dL (74-106); Sodium 128 mmol/L (136-145); Total Protein 5.3 g/dL (5.7-8.2)
[2023-03-18 12:18] LABS: Prothrombin Time 53.1 sec (9.3-11.8)
[2023-03-18 12:20] LABS: INR 5.66 (0.9-1.15)
[2023-03-18 12:30] LABS: Alanine Aminotransferase 5728 U/L (7-40); Aspartate Aminotransferase > 6000 U/L (13-40)
[2023-03-18 12:32] LABS: Calcium 5.1 mg/dL (8.5-10.1)
[2023-03-18] MEDS: BUMETANIDE 2.5mg/10ml (0.25 mg/ml) INJ IV ONE (16:24)
[2023-03-19] VITALS (116 sets, daily range): BP systolic 79–124; BP diastolic 26–61; PULSE 96–134; RESP 18–26; TEMP 97.7–99.9; O2SAT 90–100
[2023-03-19 03:53] LABS: Basophils # (auto) 0 10 ^3/uL (0-0.2); Basophils % (auto) 0.1 % (0.0-2.0); Eosinophils # (auto) 0.1 10 ^3/uL (0-0.8); Eosinophils % (auto) 1.4 % (0.0-7.0); Hematocrit 35.6 % (41.0-53.0); Hemoglobin 11.7 g/dL (13.5-17.5); Lymphocytes # (auto) 0.3 10 ^3/uL (0.4-5.4); Lymphocytes % (auto) 3.6 % (10.0-50.0); Mean Corpuscular Hemoglobin 29.4 pg (28.0-32.0); Mean Corpuscular Hgb Conc. 32.9 g/dL (32.0-36.0); Mean Corpuscular Volume 89.5 fL (80.0-100.0); Monocytes # (auto) 0.3 10 ^3/uL (0-1.3); Monocytes % (auto) 4.4 % (0.0-12.0); Neutrophils # (auto) 7.2 10 ^3/uL (1.6-8.6); Neutrophils % (auto) 90.5 % (37.0-80.0); Nucleated Red Blood Cells % 0.1 %; Red Blood Cells 3.97 10^6/uL (4.5-5.90); Red Cell Distribution Width 15.6 % (11.8-14.3); White Blood Cell 7.9 10^3/uL (4.4-10.8)
[2023-03-19 04:15] LABS: Albumin 2.8 g/dL (3.2-4.8); Alkaline Phosphatase 77 U/L (46-116); Anion Gap 12 (5-15); BUN/Creatinine Ratio 10.8 (10.0-20.0); Carbon Dioxide 30 mmol/L (20-30); Chloride 90 mmol/L (98-107); Glucose 81 mg/dL (74-106); Magnesium 2.3 mg/dL (1.6-2.6); Potassium 4.6 mmol/L (3.5-5.1); Sodium 132 mmol/L (136-145)
[2023-03-19 04:16] LABS: Bilirubin, Total 6.4 mg/dL (0.2-1.0); Phosphorus 9.8 mg/dL (2.4-5.1)
[2023-03-19 04:17] LABS: INR 3.98 (0.9-1.15); Partial Thromboplastin Time 47.6 SEC (24.5-34.5); Prothrombin Time 38.2 sec (9.3-11.8)
[2023-03-19 04:27] LABS: Alanine Aminotransferase 4716 U/L (7-40); Aspartate Aminotransferase > 6000 U/L (13-40); Blood Urea Nitrogen 74 mg/dL (9-23); Calcium 5.2 mg/dL (8.7-10.4)
[2023-03-19 07:39] LABS: Base Excess 5.4 mmol/L (-2.0-2.0)
[2023-03-19] MEDS: CALCIUM GLUC 1,000mg/50ml-NS 50 ML IV ONE (08:22)
[2023-03-19] MEDS: PANTOPRAZOLE 40 MG/10 ML VIAL INJ IV SCH (09:15)
[2023-03-19] MEDS: ACCU-CHEK COMFORT CURVE STRIP VI SCH (12:50)
[2023-03-19] MEDS: ALBUMIN 25% 100 ML IV PRN (13:35)
[2023-03-19] MEDS: SODIUM CHL 0.9% 1000 ML BAG XX ONE (14:03)
[2023-03-19] MEDS: MEPERIDINE HCL (50 MG/ML) 1 ML VIAL IV ONE (14:44)
[2023-03-20] VITALS (114 sets, daily range): BP systolic 85–158; BP diastolic 39–88; PULSE 94–129; RESP 15–21; TEMP 97.5–99.3; O2SAT 91–99
[2023-03-20 02:45] LABS: Basophils # (auto) 0 10 ^3/uL (0-0.2); Basophils % (auto) 0.3 % (0.0-2.0); Eosinophils # (auto) 0.2 10 ^3/uL (0-0.8); Eosinophils % (auto) 2.5 % (0.0-7.0); Hematocrit 33.5 % (41.0-53.0); Hemoglobin 11.1 g/dL (13.5-17.5); Lymphocytes # (auto) 0.3 10 ^3/uL (0.4-5.4); Lymphocytes % (auto) 3.1 % (10.0-50.0); Mean Corpuscular Hemoglobin 29.5 pg (28.0-32.0); Mean Corpuscular Hgb Conc. 33.2 g/dL (32.0-36.0); Mean Corpuscular Volume 88.9 fL (80.0-100.0); Monocytes # (auto) 0.3 10 ^3/uL (0-1.3); Monocytes % (auto) 2.8 % (0.0-12.0); Neutrophils # (auto) 8.9 10 ^3/uL (1.6-8.6); Neutrophils % (auto) 91.3 % (37.0-80.0); Red Blood Cells 3.77 10^6/uL (4.5-5.90); White Blood Cell 9.8 10^3/uL (4.4-10.8)
[2023-03-20 03:02] LABS: Albumin 3.1 g/dL (3.2-4.8); Alkaline Phosphatase 74 U/L (46-116); Anion Gap 10 (5-15); Calcium 6.7 mg/dL (8.7-10.4); Carbon Dioxide 28 mmol/L (20-30); Chloride 96 mmol/L (98-107); Glucose 82 mg/dL (74-106); Magnesium 2.2 mg/dL (1.6-2.6); Phosphorus 7.4 mg/dL (2.4-5.1); Potassium 4.7 mmol/L (3.5-5.1); Sodium 134 mmol/L (136-145)
[2023-03-20 03:03] LABS: Total Protein 5.2 g/dL (5.7-8.2)
[2023-03-20 03:14] LABS: Aspartate Aminotransferase 2383 U/L (13-40)
[2023-03-20 03:18] LABS: Alanine Aminotransferase 2813 U/L (7-40); Blood Urea Nitrogen 62 mg/dL (9-23)
[2023-03-20 03:37] LABS: INR 3.15 (0.9-1.15); Prothrombin Time 30.7 sec (9.3-11.8)
[2023-03-20 08:26] LABS: Base Excess 1.3 mmol/L (-2.0-2.0)
[2023-03-20] MEDS: SODIUM CHL 0.9% 1000 ML BAG XX ONE (13:00)
[2023-03-20] MEDS ORDERED: VANCOMYCIN 1GM/200ML 200 ML IV SCH (15:00)
[2023-03-20] MEDS: PHYTONADIONE (VIT K)10 MG/ML 1ML VIAL SUBCUT ONE (17:27)
[2023-03-20] MEDS: AMIODARONE BOLUS KIT 100 ML IV ONE (19:52)
[2023-03-20] MEDS: AMIODARONE 450mg/250ml AE 250 ML IV SCH (19:53)
[2023-03-21] VITALS (108 sets, daily range): BP systolic 88–150; BP diastolic 41–103; PULSE 79–116; RESP 20–22; TEMP 97.5–99.3; O2SAT 91–100
[2023-03-21] MEDS: AMIODARONE 450mg/250ml AE 250 ML IV SCH (01:04)
[2023-03-21 02:52] LABS: Basophils # (auto) 0 10 ^3/uL (0-0.2); Eosinophils # (auto) 0.4 10 ^3/uL (0-0.8); Hemoglobin 10.7 g/dL (13.5-17.5); Lymphocytes # (auto) 0.6 10 ^3/uL (0.4-5.4); Lymphocytes % (auto) 6.5 % (10.0-50.0)
[2023-03-21 02:54] LABS: Basophils % (auto) 0.3 % (0.0-2.0); Eosinophils % (auto) 3.7 % (0.0-7.0); Hematocrit 32.9 % (41.0-53.0); Mean Corpuscular Hemoglobin 29.6 pg (28.0-32.0); Mean Corpuscular Hgb Conc. 32.7 g/dL (32.0-36.0); Mean Corpuscular Volume 90.8 fL (80.0-100.0); Monocytes # (auto) 0.5 10 ^3/uL (0-1.3); Monocytes % (auto) 5.1 % (0.0-12.0); Neutrophils # (auto) 8.1 10 ^3/uL (1.6-8.6); Neutrophils % (auto) 84.4 % (37.0-80.0); Red Blood Cells 3.62 10^6/uL (4.5-5.90); Red Cell Distribution Width 16.3 % (11.8-14.3); White Blood Cell 9.6 10^3/uL (4.4-10.8)
[2023-03-21 03:11] LABS: Albumin 3.6 g/dL (3.2-4.8); Alkaline Phosphatase 76 U/L (46-116); Anion Gap 10 (5-15); Calcium 8.2 mg/dL (8.7-10.4); Carbon Dioxide 27 mmol/L (20-30); Chloride 98 mmol/L (98-107); Glucose 83 mg/dL (74-106); Magnesium 2.3 mg/dL (1.6-2.6); Potassium 4.9 mmol/L (3.5-5.1); Sodium 135 mmol/L (136-145); Total Protein 5.7 g/dL (5.7-8.2)
[2023-03-21 03:32] LABS: Blood Urea Nitrogen 44 mg/dL (9-23)
[2023-03-21 03:34] LABS: Lactic Acid w/Reflex 2.3 mmol/L (0.4-2.0)
[2023-03-21 03:36] LABS: BUN/Creatinine Ratio 7.7 (10.0-20.0)
[2023-03-21 04:12] LABS: Aspartate Aminotransferase 1156 U/L (13-40)
[2023-03-21 04:13] LABS: Alanine Aminotransferase 1891 U/L (7-40)
[2023-03-21 04:21] LABS: Base Excess -1.3 mmol/L (-2.0-2.0)
[2023-03-21] MEDS: LACTATED RINGER'S 500 ML IV ONE (04:33)
[2023-03-21 09:44] LABS: INR 2.38 (0.9-1.15); Partial Thromboplastin Time 52.2 SEC (24.5-34.5); Prothrombin Time 23.6 sec (9.3-11.8)
[2023-03-21] MEDS: SODIUM CHL 0.9% 1000 ML BAG XX ONE (13:00)
[2023-03-21] MEDS: Jevity 1.2 Cal/Fiber 1 Liter GT SCH (17:50)
[2023-03-22] VITALS (116 sets, daily range): BP systolic 75–152; BP diastolic 39–90; PULSE 72–128; RESP 12–25; TEMP 97.9–99.3; O2SAT 85–100
[2023-03-22 03:53] LABS: Basophils # (auto) 0 10 ^3/uL (0-0.2); Monocytes # (auto) 0.6 10 ^3/uL (0-1.3); White Blood Cell 9.9 10^3/uL (4.4-10.8)
[2023-03-22 03:55] LABS: Basophils % (auto) 0.5 % (0.0-2.0); Eosinophils # (auto) 0.6 10 ^3/uL (0-0.8); Eosinophils % (auto) 6.3 % (0.0-7.0); Hematocrit 37.2 % (41.0-53.0); Hemoglobin 12.2 g/dL (13.5-17.5); Lymphocytes # (auto) 0.5 10 ^3/uL (0.4-5.4); Lymphocytes % (auto) 5.3 % (10.0-50.0); Mean Corpuscular Hemoglobin 29.8 pg (28.0-32.0); Mean Corpuscular Hgb Conc. 32.8 g/dL (32.0-36.0); Monocytes % (auto) 6.1 % (0.0-12.0); Neutrophils # (auto) 8.1 10 ^3/uL (1.6-8.6); Neutrophils % (auto) 81.8 % (37.0-80.0); Nucleated Red Blood Cells % 0.2 %; Red Blood Cells 4.09 10^6/uL (4.5-5.90); Red Cell Distribution Width 16.3 % (11.8-14.3)
[2023-03-22 04:14] LABS: Alanine Aminotransferase 947 U/L (7-40); Albumin 3.4 g/dL (3.2-4.8); Alkaline Phosphatase 84 U/L (46-116); Anion Gap 10 (5-15); Aspartate Aminotransferase 547 U/L (13-40); Bilirubin, Total 11.9 mg/dL (0.2-1.0); Blood Urea Nitrogen 32 mg/dL (9-23); Calcium 8.3 mg/dL (8.7-10.4); Carbon Dioxide 25 mmol/L (20-30); Chloride 99 mmol/L (98-107); Glucose 73 mg/dL (74-106); Magnesium 2.4 mg/dL (1.6-2.6); Phosphorus 5.9 mg/dL (2.4-5.1); Potassium 4.4 mmol/L (3.5-5.1); Sodium 134 mmol/L (136-145); Total Protein 5.5 g/dL (5.7-8.2)
[2023-03-22] MEDS: SODIUM CHL 0.9% 1000 ML BAG XX ONE (13:36)
[2023-03-22] MEDS ORDERED: CLINIMIX PER PHARMACY 0 ML IV SCH (14:00)
[2023-03-22] MEDS: METOCLOPRAMIDE HCL 5MG/ml INJ 2ml VIAL IV SCH (15:01)
[2023-03-22] MEDS ORDERED: DEXTROSE (50%) 50ML SYRG IV SCH (20:00)
[2023-03-22] MEDS: AMINO ACID INFUSION IN D10W 1,000 ML IV SCH (20:00)
[2023-03-22 22:21] LABS: Hemoglobin 12.3 g/dL (13.5-17.5); Lymphocytes # (auto) 0.8 10 ^3/uL (0.4-5.4); Monocytes # (auto) 1.2 10 ^3/uL (0-1.3); Neutrophils # (auto) 9.2 10 ^3/uL (1.6-8.6)
[2023-03-22 22:23] LABS: Basophils # (auto) 0 10 ^3/uL (0-0.2); Basophils % (auto) 0.4 % (0.0-2.0); Eosinophils # (auto) 0.5 10 ^3/uL (0-0.8); Eosinophils % (auto) 3.9 % (0.0-7.0); Hematocrit 37.6 % (41.0-53.0); Lymphocytes % (auto) 6.9 % (10.0-50.0); Mean Corpuscular Hemoglobin 29.1 pg (28.0-32.0); Mean Corpuscular Hgb Conc. 32.6 g/dL (32.0-36.0); Mean Corpuscular Volume 89.3 fL (80.0-100.0); Monocytes % (auto) 10.6 % (0.0-12.0); Neutrophils % (auto) 78.2 % (37.0-80.0); Red Blood Cells 4.21 10^6/uL (4.5-5.90); Red Cell Distribution Width 16.6 % (11.8-14.3); White Blood Cell 11.7 10^3/uL (4.4-10.8)
[2023-03-23] VITALS (120 sets, daily range): BP systolic 75–152; BP diastolic 36–95; PULSE 62–122; RESP 18–23; TEMP 97.9–99.7; O2SAT 97–100
[2023-03-23] MEDS: InsuLIN REG 1unit/0.01ml Soln (100units/ml) SC SCH
[2023-03-23] MEDS: ACCU-CHEK COMFORT CURVE STRIP VI SCH (00:26)
[2023-03-23 04:57] LABS: Alanine Aminotransferase 718 U/L (7-40); Albumin 2.9 g/dL (3.2-4.8); Alkaline Phosphatase 87 U/L (46-116); Anion Gap 8 (5-15); Aspartate Aminotransferase 262 U/L (13-40); Blood Urea Nitrogen 35 mg/dL (9-23); Calcium 8.2 mg/dL (8.7-10.4); Carbon Dioxide 27 mmol/L (20-30); Chloride 100 mmol/L (98-107); Glucose 105 mg/dL (74-106); Magnesium 2.3 mg/dL (1.6-2.6); Sodium 135 mmol/L (136-145)
[2023-03-23 04:58] LABS: Bilirubin, Total 14.6 mg/dL (0.2-1.0); Phosphorus 5.4 mg/dL (2.4-5.1); Total Protein 5.1 g/dL (5.7-8.2)
[2023-03-23 05:39] LABS: INR 1.91 (0.9-1.15); Partial Thromboplastin Time 48.4 SEC (24.5-34.5); Prothrombin Time 19.2 sec (9.3-11.8)
[2023-03-23] MEDS: SODIUM CHL 0.9% 1000 ML BAG XX ONE (07:00)
[2023-03-23 07:04] LABS: Base Excess 1.8 mmol/L (-2.0-2.0)
[2023-03-23 07:10] LABS: BUN/Creatinine Ratio 6.8 (10.0-20.0)
[2023-03-23 08:43] LABS: Basophils # (auto) 0 10 ^3/uL (0-0.2); Basophils % (auto) 0.5 % (0.0-2.0); Eosinophils # (auto) 0.6 10 ^3/uL (0-0.8); Eosinophils % (auto) 6.5 % (0.0-7.0); Hematocrit 38.2 % (41.0-53.0); Hemoglobin 12.3 g/dL (13.5-17.5); Lymphocytes # (auto) 1.1 10 ^3/uL (0.4-5.4); Lymphocytes % (auto) 10.9 % (10.0-50.0); Mean Corpuscular Hemoglobin 29.2 pg (28.0-32.0); Mean Corpuscular Hgb Conc. 32.1 g/dL (32.0-36.0); Monocytes # (auto) 1.1 10 ^3/uL (0-1.3); Monocytes % (auto) 11.2 % (0.0-12.0); Neutrophils # (auto) 6.9 10 ^3/uL (1.6-8.6); Neutrophils % (auto) 70.9 % (37.0-80.0); Nucleated Red Blood Cells % 0.2 %; Red Cell Distribution Width 17.1 % (11.8-14.3); White Blood Cell 9.7 10^3/uL (4.4-10.8)
[2023-03-23] MEDS: EPOETIN ALFA-EPBX 10,000 UNIT/1ML VIAL SC ONE (21:00)
[2023-03-24] VITALS (107 sets, daily range): BP systolic 74–163; BP diastolic 44–148; PULSE 52–111; RESP 12–27; TEMP 97.2–99; O2SAT 94–100
[2023-03-24 04:23] LABS: Hematocrit 37.7 % (41.0-53.0); Hemoglobin 12.1 g/dL (13.5-17.5); Mean Corpuscular Hemoglobin 29.4 pg (28.0-32.0); Mean Corpuscular Hgb Conc. 32.2 g/dL (32.0-36.0); Mean Corpuscular Volume 91.3 fL (80.0-100.0); Red Blood Cells 4.14 10^6/uL (4.5-5.90); Red Cell Distribution Width 17.2 % (11.8-14.3); White Blood Cell 9.1 10^3/uL (4.4-10.8)
[2023-03-24 04:41] LABS: INR 1.8 (0.9-1.15); Partial Thromboplastin Time 44.1 SEC (24.5-34.5); Prothrombin Time 18.2 sec (9.3-11.8)
[2023-03-24 04:57] LABS: Basophils % (manual) 0 (0.0-2.0); Blast Cells 0; Promyelocytes % 0; Reactive Lymphocytes 0
[2023-03-24 07:02] LABS: Band Neutrophils % (manual) 9; Eosinophils % (manual) 7 (0-7); Lymphocytes % (manual) 10 (10.0-50.0); Metamyelocytes % 2; Monocytes % (manual) 9 (0-12); Myelocytes % 4
[2023-03-24 07:03] LABS: Anisocytosis Slight; Ovalocytes FEW; Platelet Estimate Decreased
[2023-03-24 07:04] LABS: Chloride 102 mmol/L (98-107); Sodium 135 mmol/L (136-145)
[2023-03-24 07:07] LABS: Anion Gap 7 (5-15); Calcium 7.5 mg/dL (8.7-10.4); Carbon Dioxide 26 mmol/L (20-30)
[2023-03-24 07:12] LABS: Alkaline Phosphatase 65 U/L (46-116); Glucose 99 mg/dL (74-106)
[2023-03-24 07:13] LABS: Magnesium 2.1 mg/dL (1.6-2.6)
[2023-03-24 07:14] LABS: Albumin 2.4 g/dL (3.2-4.8); Aspartate Aminotransferase 219 U/L (13-40); Bilirubin, Total 13.1 mg/dL (0.2-1.0); Phosphorus 4.1 mg/dL (2.4-5.1); Total Protein 4.2 g/dL (5.7-8.2)
[2023-03-24 07:17] LABS: Alanine Aminotransferase 481 U/L (7-40); BUN/Creatinine Ratio 7.1 (10.0-20.0); Blood Urea Nitrogen 37 mg/dL (9-23); Potassium 3.9 mmol/L (3.5-5.1)
[2023-03-24 09:40] LABS: Base Excess 0.3 mmol/L (-2.0-2.0)
[2023-03-24 13:13] LABS: Creatinine, Urine 115.25 mg/dL (30.0-125.0)
[2023-03-24 13:15] LABS: Urine Protein/Creatinine Ratio 5.66
[2023-03-24] MEDS ORDERED: TPN PER PHARMACY 0 ML IV SCH (15:45)
[2023-03-24] MEDS: AMIODARONE HCL 200 MG TAB PO SCH (21:46)
[2023-03-24] MEDS: AMINO ACID INFUSION IN D10W 1,000 ML IV ONE (21:46)
[2023-03-25] VITALS (115 sets, daily range): BP systolic 81–143; BP diastolic 50–86; PULSE 57–116; RESP 17–26; TEMP 97.5–99.3; O2SAT 92–99
[2023-03-25 04:33] LABS: Hematocrit 37.5 % (41.0-53.0); Hemoglobin 12.2 g/dL (13.5-17.5); Mean Corpuscular Hgb Conc. 32.6 g/dL (32.0-36.0); Mean Corpuscular Volume 88.9 fL (80.0-100.0); Red Blood Cells 4.22 10^6/uL (4.5-5.90); Red Cell Distribution Width 16.9 % (11.8-14.3)
[2023-03-25 04:38] LABS: Basophils % (manual) 0 (0.0-2.0); Blast Cells 0; Metamyelocytes % 0; Myelocytes % 0; Promyelocytes % 0; Reactive Lymphocytes 0
[2023-03-25 04:39] LABS: Alanine Aminotransferase 396 U/L (7-40); Alkaline Phosphatase 99 U/L (46-116); Anion Gap 9 (5-15); Calcium 8.1 mg/dL (8.7-10.4); Carbon Dioxide 23 mmol/L (20-30); Chloride 100 mmol/L (98-107); Glucose 88 mg/dL (74-106); Magnesium 2.2 mg/dL (1.6-2.6); Potassium 4.1 mmol/L (3.5-5.1); Sodium 132 mmol/L (136-145)
[2023-03-25 04:40] LABS: Albumin 2.9 g/dL (3.2-4.8); Aspartate Aminotransferase 142 U/L (13-40)
[2023-03-25 04:41] LABS: Bilirubin, Total 18.1 mg/dL (0.2-1.0); Total Protein 5.5 g/dL (5.7-8.2)
[2023-03-25 04:42] LABS: Blood Urea Nitrogen 62 mg/dL (9-23)
[2023-03-25 04:52] LABS: BUN/Creatinine Ratio 9.2 (10.0-20.0)
[2023-03-25 05:04] LABS: Band Neutrophils % (manual) 6; Eosinophils % (manual) 2 (0-7); Lymphocytes % (manual) 11 (10.0-50.0); Monocytes % (manual) 9 (0-12)
[2023-03-25 05:05] LABS: Platelet Estimate Decreased
[2023-03-25] MEDS: SODIUM CHL 0.9% 1000 ML BAG XX ONE (07:00)
[2023-03-25 07:43] LABS: Base Excess -3.4 mmol/L (-2.0-2.0)
[2023-03-25 07:44] LABS: Triglycerides 139 mg/dL (< 150)
[2023-03-25] MEDS: OCTREOTIDE ACETATE 100 MCG/ML VL SUBCUT SCH (15:43)
[2023-03-25] MEDS: TPN*HIGH CONC* PER PHARMACY IV NR (20:08)
[2023-03-26] VITALS (109 sets, daily range): BP systolic 82–159; BP diastolic 49–118; PULSE 63–96; RESP 14–26; TEMP 97.2–99.3; O2SAT 90–100
[2023-03-26 04:31] LABS: Hematocrit 32.2 % (41.0-53.0); Hemoglobin 10.7 g/dL (13.5-17.5); Mean Corpuscular Hemoglobin 29.4 pg (28.0-32.0); Mean Corpuscular Hgb Conc. 33.2 g/dL (32.0-36.0); Mean Corpuscular Volume 88.8 fL (80.0-100.0); Red Blood Cells 3.62 10^6/uL (4.5-5.90); Red Cell Distribution Width 17.4 % (11.8-14.3); White Blood Cell 10.4 10^3/uL (4.4-10.8)
[2023-03-26 04:45] LABS: Basophils % (manual) 0 (0.0-2.0); Blast Cells 0; Metamyelocytes % 0; Myelocytes % 0; Promyelocytes % 0; Reactive Lymphocytes 0
[2023-03-26 05:05] LABS: Alkaline Phosphatase 96 U/L (46-116); Anion Gap 10 (5-15); Calcium 8.2 mg/dL (8.7-10.4); Carbon Dioxide 22 mmol/L (20-30); Chloride 99 mmol/L (98-107); Glucose 110 mg/dL (74-106); Magnesium 2.3 mg/dL (1.6-2.6); Potassium 4.2 mmol/L (3.5-5.1); Sodium 131 mmol/L (136-145)
[2023-03-26 05:06] LABS: Albumin 2.8 g/dL (3.2-4.8)
[2023-03-26 05:07] LABS: Bilirubin, Total 19.5 mg/dL (0.2-1.0); Phosphorus 5.7 mg/dL (2.4-5.1)
[2023-03-26 05:13] LABS: Aspartate Aminotransferase 123 U/L (13-40); BUN/Creatinine Ratio 8.7 (10.0-20.0); Blood Urea Nitrogen 63 mg/dL (9-23); Total Protein 5.6 g/dL (5.7-8.2)
[2023-03-26 05:51] LABS: Band Neutrophils % (manual) 11; Eosinophils % (manual) 3 (0-7); Lymphocytes % (manual) 18 (10.0-50.0); Monocytes % (manual) 5 (0-12)
[2023-03-26 05:52] LABS: Platelet Estimate Decreased
[2023-03-26 06:01] LABS: Alanine Aminotransferase 315 U/L (7-40)
[2023-03-26 07:27] LABS: Base Excess -3.5 mmol/L (-2.0-2.0)
[2023-03-26] MEDS: DOPamine 1600MCG/ML D5W 250 ML IV SCH (11:30)
[2023-03-26] MEDS: TPN*HIGH CONC* PER PHARMACY IV NR (20:10)
[2023-03-26] MEDS: rifAXIMin 550 MG TAB PO SCH (21:36)
[2023-03-26] MEDS: LACTULOSE 20Gm/30ML SOLN PO SCH (21:36)
[2023-03-27] VITALS (89 sets, daily range): BP systolic 87–150; BP diastolic 47–88; PULSE 60–118; RESP 12–26; TEMP 97–98.4; O2SAT 95–100
[2023-03-27 04:03] LABS: Hematocrit 34.5 % (41.0-53.0); Hemoglobin 11.6 g/dL (13.5-17.5); Mean Corpuscular Hemoglobin 29.8 pg (28.0-32.0); Mean Corpuscular Hgb Conc. 33.7 g/dL (32.0-36.0); Mean Corpuscular Volume 88.3 fL (80.0-100.0); Red Blood Cells 3.91 10^6/uL (4.5-5.90); Red Cell Distribution Width 17.7 % (11.8-14.3); White Blood Cell 10.8 10^3/uL (4.4-10.8)
[2023-03-27 04:13] LABS: Basophils % (manual) 0 (0.0-2.0); Blast Cells 0; Metamyelocytes % 0; Myelocytes % 0; Promyelocytes % 0; Reactive Lymphocytes 0
[2023-03-27 04:27] LABS: Albumin 2.7 g/dL (3.2-4.8); Alkaline Phosphatase 93 U/L (46-116); Anion Gap 13 (5-15); Bilirubin, Total 19.3 mg/dL (0.2-1.0); Calcium 8.1 mg/dL (8.7-10.4); Carbon Dioxide 20 mmol/L (20-30); Chloride 99 mmol/L (98-107); Glucose 114 mg/dL (74-106); Magnesium 2.4 mg/dL (1.6-2.6); Phosphorus 5.4 mg/dL (2.4-5.1); Potassium 4.2 mmol/L (3.5-5.1); Sodium 132 mmol/L (136-145)
[2023-03-27 04:29] LABS: Alanine Aminotransferase 242 U/L (7-40); Aspartate Aminotransferase 113 U/L (13-40); BUN/Creatinine Ratio 9.7 (10.0-20.0); Total Protein 5.7 g/dL (5.7-8.2)
[2023-03-27 04:32] LABS: Blood Urea Nitrogen 87 mg/dL (9-23)
[2023-03-27 06:12] LABS: Band Neutrophils % (manual) 12; Eosinophils % (manual) 1 (0-7); Lymphocytes % (manual) 5 (10.0-50.0); Monocytes % (manual) 4 (0-12)
[2023-03-27 06:13] LABS: Platelet Estimate Decreased
[2023-03-27] MEDS: SODIUM CHL 0.9% 1000 ML BAG XX ONE (07:00)
[2023-03-27 09:44] LABS: Base Excess -0.8 mmol/L (-2.0-2.0)
[2023-03-27] MEDS ORDERED: GLYCOPYRROLATE 0.2 MG/ML 1ML VIAL IV ONE (18:00)
[2023-03-27] MEDS: GLYCOPYRROLATE 0.2 MG/ML 1ML VIAL IV PRN (18:28)
[2023-03-27] MEDS: TPN*HIGH CONC* PER PHARMACY IV NR (19:56)
[2023-03-27] MEDS ORDERED: EPOETIN ALFA-EPBX 10,000 UNIT/1ML VIAL SC ONE (21:00)
[2023-03-28] VITALS (81 sets, daily range): BP systolic 77–142; BP diastolic 34–103; PULSE 85–117; RESP 13–25; TEMP 98.5–99.3; O2SAT 73–100
[2023-03-28 04:36] LABS: Albumin 2.7 g/dL (3.2-4.8); Alkaline Phosphatase 102 U/L (46-116); Anion Gap 11 (5-15); Bilirubin, Total 19.8 mg/dL (0.2-1.0); Calcium 8.2 mg/dL (8.7-10.4); Carbon Dioxide 23 mmol/L (20-30); Chloride 102 mmol/L (98-107); Glucose 98 mg/dL (74-106); Magnesium 2.4 mg/dL (1.6-2.6); Phosphorus 4.8 mg/dL (2.4-5.1); Sodium 136 mmol/L (136-145)
[2023-03-28 04:51] LABS: Hematocrit 37.7 % (41.0-53.0); Hemoglobin 12.5 g/dL (13.5-17.5); Mean Corpuscular Hemoglobin 29.2 pg (28.0-32.0); Mean Corpuscular Volume 88.6 fL (80.0-100.0); Red Blood Cells 4.26 10^6/uL (4.5-5.90); Red Cell Distribution Width 17.9 % (11.8-14.3); White Blood Cell 14.8 10^3/uL (4.4-10.8)
[2023-03-28 04:58] LABS: Band Neutrophils % (manual) 0; Basophils % (manual) 0 (0.0-2.0); Blast Cells 0; Metamyelocytes % 0; Promyelocytes % 0; Reactive Lymphocytes 0
[2023-03-28 05:17] LABS: Alanine Aminotransferase 201 U/L (7-40); Aspartate Aminotransferase 115 U/L (13-40); BUN/Creatinine Ratio 8.8 (10.0-20.0); Total Protein 6.1 g/dL (5.7-8.2)
[2023-03-28 05:18] LABS: Blood Urea Nitrogen 69 mg/dL (9-23)
[2023-03-28 05:32] LABS: Eosinophils % (manual) 1 (0-7); Lymphocytes % (manual) 5 (10.0-50.0); Monocytes % (manual) 6 (0-12); Myelocytes % 5
[2023-03-28 05:33] LABS: Platelet Estimate Decreased
[2023-03-28 07:19] LABS: Base Excess -4.2 mmol/L (-2.0-2.0)
[2023-03-28] MEDS ORDERED: TPN PER PHARMACY IV SCH (13:00)
[2023-03-28] MEDS: TPN PER PHARMACY IV SCH (20:22)
[2023-03-29] VITALS (115 sets, daily range): BP systolic 72–140; BP diastolic 38–94; PULSE 60–115; RESP 10–31; TEMP 97.9–99; O2SAT 91–100
[2023-03-29 04:26] LABS: Hematocrit 36.4 % (41.0-53.0); Mean Corpuscular Hemoglobin 29.3 pg (28.0-32.0); Mean Corpuscular Hgb Conc. 32.9 g/dL (32.0-36.0); Mean Corpuscular Volume 89.1 fL (80.0-100.0); Red Blood Cells 4.09 10^6/uL (4.5-5.90); White Blood Cell 16.2 10^3/uL (4.4-10.8)
[2023-03-29 04:48] LABS: Band Neutrophils % (manual) 0; Basophils % (manual) 0 (0.0-2.0); Blast Cells 0; Metamyelocytes % 0; Promyelocytes % 0; Reactive Lymphocytes 0
[2023-03-29 04:59] LABS: Albumin 2.8 g/dL (3.2-4.8); Alkaline Phosphatase 110 U/L (46-116); Anion Gap 12 (5-15); Bilirubin, Total 21.3 mg/dL (0.2-1.0); Calcium 8.6 mg/dL (8.7-10.4); Carbon Dioxide 20 mmol/L (20-30); Chloride 102 mmol/L (98-107); Glucose 116 mg/dL (74-106); Magnesium 2.6 mg/dL (1.6-2.6); Phosphorus 5.7 mg/dL (2.4-5.1); Sodium 134 mmol/L (136-145)
[2023-03-29 05:13] LABS: Alanine Aminotransferase 168 U/L (7-40); Aspartate Aminotransferase 116 U/L (13-40); BUN/Creatinine Ratio 9.4 (10.0-20.0); Total Protein 6.4 g/dL (5.7-8.2)
[2023-03-29 05:32] LABS: Blood Urea Nitrogen 89 mg/dL (9-23)
[2023-03-29 06:54] LABS: Eosinophils % (manual) 1 (0-7); Lymphocytes % (manual) 3 (10.0-50.0); Monocytes % (manual) 14 (0-12); Myelocytes % 2; Platelet Estimate Decreased
[2023-03-29 07:01] LABS: Base Excess -6.2 mmol/L (-2.0-2.0)
[2023-03-29] MEDS: CEFEPIME 1GM/ 50ML 50 ML IV SCH (10:12)
[2023-03-29] MEDS: FLEET ENEMA(ADULT) 135 ML PR ONE (10:13)
[2023-03-29] MEDS: SODIUM CHL 0.9% 1000 ML BAG XX ONE (14:00)
[2023-03-29] MEDS: TPN*HIGH CONC* PER PHARMACY IV NR (22:28)
[2023-03-30] VITALS (117 sets, daily range): BP systolic 77–157; BP diastolic 49–93; PULSE 81–112; RESP 14–40; TEMP 97.6–99.5; O2SAT 93–100
[2023-03-30 04:15] LABS: Basophils # (auto) 0.1 10 ^3/uL (0-0.2); Basophils % (auto) 0.6 % (0.0-2.0); Eosinophils # (auto) 0.1 10 ^3/uL (0-0.8); Hematocrit 33.3 % (41.0-53.0); Hemoglobin 11.3 g/dL (13.5-17.5); Lymphocytes # (auto) 0.8 10 ^3/uL (0.4-5.4); Lymphocytes % (auto) 6.5 % (10.0-50.0); Mean Corpuscular Hemoglobin 29.6 pg (28.0-32.0); Mean Corpuscular Hgb Conc. 33.8 g/dL (32.0-36.0); Mean Corpuscular Volume 87.6 fL (80.0-100.0); Monocytes # (auto) 1.3 10 ^3/uL (0-1.3); Monocytes % (auto) 9.9 % (0.0-12.0); Neutrophils # (auto) 10.6 10 ^3/uL (1.6-8.6); Nucleated Red Blood Cells % 0.3 %; Red Cell Distribution Width 18.3 % (11.8-14.3)
[2023-03-30 04:38] LABS: Alkaline Phosphatase 96 U/L (46-116); Anion Gap 11 (5-15); Carbon Dioxide 21 mmol/L (20-30); Chloride 103 mmol/L (98-107); Glucose 104 mg/dL (74-106); Potassium 4.5 mmol/L (3.5-5.1); Sodium 135 mmol/L (136-145)
[2023-03-30 04:39] LABS: Albumin 2.5 g/dL (3.2-4.8); Magnesium 2.4 mg/dL (1.6-2.6)
[2023-03-30 04:40] LABS: Bilirubin, Total 20.3 mg/dL (0.2-1.0); Phosphorus 4.5 mg/dL (2.4-5.1)
[2023-03-30 04:55] LABS: Alanine Aminotransferase 129 U/L (7-40); Aspartate Aminotransferase 106 U/L (13-40); BUN/Creatinine Ratio 9.2 (10.0-20.0)
[2023-03-30 04:58] LABS: Blood Urea Nitrogen 83 mg/dL (9-23)
[2023-03-30] MEDS: TPN*HIGH CONC* PER PHARMACY IV NR (19:34)
[2023-03-30] MEDS: NYSTATIN TOPICAL POWDER 15GM TOP SCH (22:16)
[2023-03-31] VITALS (117 sets, daily range): BP systolic 87–156; BP diastolic 38–96; PULSE 73–111; RESP 9–30; TEMP 97.8–99.5; O2SAT 96–100
[2023-03-31 04:37] LABS: Basophils # (auto) 0.1 10 ^3/uL (0-0.2); Basophils % (auto) 0.6 % (0.0-2.0); Eosinophils # (auto) 0.1 10 ^3/uL (0-0.8); Hematocrit 34.1 % (41.0-53.0); Hemoglobin 11.6 g/dL (13.5-17.5); Lymphocytes # (auto) 0.7 10 ^3/uL (0.4-5.4); Lymphocytes % (auto) 6.3 % (10.0-50.0); Mean Corpuscular Hemoglobin 30.1 pg (28.0-32.0); Mean Corpuscular Hgb Conc. 33.9 g/dL (32.0-36.0); Mean Corpuscular Volume 88.8 fL (80.0-100.0); Monocytes # (auto) 1.3 10 ^3/uL (0-1.3); Monocytes % (auto) 11.3 % (0.0-12.0); Neutrophils # (auto) 9.2 10 ^3/uL (1.6-8.6); Neutrophils % (auto) 80.8 % (37.0-80.0); Red Blood Cells 3.84 10^6/uL (4.5-5.90); White Blood Cell 11.4 10^3/uL (4.4-10.8)
[2023-03-31 04:39] LABS: Albumin 2.5 g/dL (3.2-4.8); Alkaline Phosphatase 95 U/L (46-116); Anion Gap 12 (5-15); Calcium 8.2 mg/dL (8.7-10.4); Carbon Dioxide 19 mmol/L (20-30); Chloride 104 mmol/L (98-107); Glucose 107 mg/dL (74-106); Magnesium 2.4 mg/dL (1.6-2.6); Potassium 4.5 mmol/L (3.5-5.1); Sodium 135 mmol/L (136-145)
[2023-03-31 04:40] LABS: Bilirubin, Total 21.9 mg/dL (0.2-1.0); Phosphorus 5.2 mg/dL (2.4-5.1)
[2023-03-31 04:49] LABS: Alanine Aminotransferase 111 U/L (7-40); Aspartate Aminotransferase 126 U/L (13-40); BUN/Creatinine Ratio 11.1 (10.0-20.0); Total Protein 6.2 g/dL (5.7-8.2)
[2023-03-31 04:58] LABS: Blood Urea Nitrogen 116 mg/dL (9-23)
[2023-03-31 05:21] LABS: Red Cell Distribution Width 21.9 % (11.8-14.3)
[2023-03-31 08:04] LABS: Base Excess -8.5 mmol/L (-2.0-2.0)
[2023-03-31] MEDS: fentaNYL Drip 2500mCg/250mlNS 250 ML IV SCH (19:00)
[2023-03-31] MEDS: TPN*HIGH CONC* PER PHARMACY IV NR (21:45)
[2023-04-01] VITALS (117 sets, daily range): BP systolic 78–130; BP diastolic 42–76; PULSE 71–109; RESP 16–26; TEMP 97.8–99.1; O2SAT 95–100
[2023-04-01 04:17] LABS: Basophils # (auto) 0.1 10 ^3/uL (0-0.2); Basophils % (auto) 0.6 % (0.0-2.0); Eosinophils # (auto) 0.1 10 ^3/uL (0-0.8); Eosinophils % (auto) 0.7 % (0.0-7.0); Hematocrit 32.2 % (41.0-53.0); Hemoglobin 10.9 g/dL (13.5-17.5); Lymphocytes # (auto) 0.7 10 ^3/uL (0.4-5.4); Lymphocytes % (auto) 6.2 % (10.0-50.0); Mean Corpuscular Hemoglobin 30.1 pg (28.0-32.0); Mean Corpuscular Hgb Conc. 33.8 g/dL (32.0-36.0); Mean Corpuscular Volume 89.1 fL (80.0-100.0); Monocytes # (auto) 1.1 10 ^3/uL (0-1.3); Monocytes % (auto) 9.4 % (0.0-12.0); Neutrophils # (auto) 9.3 10 ^3/uL (1.6-8.6); Neutrophils % (auto) 83.1 % (37.0-80.0); Red Blood Cells 3.62 10^6/uL (4.5-5.90); White Blood Cell 11.2 10^3/uL (4.4-10.8)
[2023-04-01 04:31] LABS: Albumin 2.5 g/dL (3.2-4.8); Alkaline Phosphatase 91 U/L (46-116); Anion Gap 13 (5-15); Calcium 8.2 mg/dL (8.7-10.4); Carbon Dioxide 19 mmol/L (20-30); Chloride 104 mmol/L (98-107); Glucose 107 mg/dL (74-106); Magnesium 2.4 mg/dL (1.6-2.6); Potassium 4.3 mmol/L (3.5-5.1); Sodium 136 mmol/L (136-145)
[2023-04-01 04:32] LABS: Bilirubin, Total 22.8 mg/dL (0.2-1.0); Phosphorus 4.7 mg/dL (2.4-5.1)
[2023-04-01 04:50] LABS: Alanine Aminotransferase 107 U/L (7-40); Aspartate Aminotransferase 152 U/L (13-40); BUN/Creatinine Ratio 11.3 (10.0-20.0); Total Protein 6.2 g/dL (5.7-8.2)
[2023-04-01 04:52] LABS: Red Cell Distribution Width 22.7 % (11.8-14.3)
[2023-04-01 04:58] LABS: Blood Urea Nitrogen 109 mg/dL (9-23)
[2023-04-01 05:14] LABS: Triglycerides 184 mg/dL (< 150)
[2023-04-01 07:17] LABS: Base Excess -6.5 mmol/L (-2.0-2.0)
[2023-04-01] MEDS ORDERED: TPN*HIGH CONC* PER PHARMACY IV NR (20:00)
[2023-04-01] MEDS: TPN*HIGH CONC* PER PHARMACY IV NR (21:39)
[2023-04-02] VITALS (109 sets, daily range): BP systolic 81–128; BP diastolic 39–87; PULSE 71–178; RESP 2–31; TEMP 97.9–99.1; O2SAT 90–100
[2023-04-02 04:30] LABS: Basophils # (auto) 0 10 ^3/uL (0-0.2); Basophils % (auto) 0.4 % (0.0-2.0); Eosinophils # (auto) 0 10 ^3/uL (0-0.8); Eosinophils % (auto) 0.4 % (0.0-7.0); Hematocrit 31.6 % (41.0-53.0); Hemoglobin 10.7 g/dL (13.5-17.5); Lymphocytes # (auto) 0.8 10 ^3/uL (0.4-5.4); Lymphocytes % (auto) 7.5 % (10.0-50.0); Mean Corpuscular Hemoglobin 30.6 pg (28.0-32.0); Mean Corpuscular Hgb Conc. 33.9 g/dL (32.0-36.0); Mean Corpuscular Volume 90.2 fL (80.0-100.0); Monocytes # (auto) 1.1 10 ^3/uL (0-1.3); Monocytes % (auto) 10.5 % (0.0-12.0); Neutrophils # (auto) 8.2 10 ^3/uL (1.6-8.6); Neutrophils % (auto) 81.2 % (37.0-80.0); White Blood Cell 10.1 10^3/uL (4.4-10.8)
[2023-04-02 04:40] LABS: Red Cell Distribution Width 24.2 % (11.8-14.3)
[2023-04-02 04:48] LABS: Albumin 2.4 g/dL (3.2-4.8); Alkaline Phosphatase 96 U/L (46-116); Anion Gap 15 (5-15); Bilirubin, Total 23.9 mg/dL (0.2-1.0); Calcium 8.3 mg/dL (8.7-10.4); Carbon Dioxide 17 mmol/L (20-30); Chloride 102 mmol/L (98-107); Glucose 111 mg/dL (74-106); Magnesium 2.4 mg/dL (1.6-2.6); Phosphorus 5.3 mg/dL (2.4-5.1); Potassium 4.8 mmol/L (3.5-5.1); Sodium 134 mmol/L (136-145)
[2023-04-02 05:03] LABS: Alanine Aminotransferase 107 U/L (7-40); Aspartate Aminotransferase 155 U/L (13-40); BUN/Creatinine Ratio 10.9 (10.0-20.0); Total Protein 6.3 g/dL (5.7-8.2)
[2023-04-02 05:05] LABS: Blood Urea Nitrogen 121 mg/dL (9-23)
[2023-04-02 08:07] LABS: Base Excess -8.6 mmol/L (-2.0-2.0)
[2023-04-02 09:04] LABS: Anisocytosis Moderate; Platelet Estimate Adequate
[2023-04-02] MEDS: ADENOSINE 6 MG/2 ML INJ IV ONE ×2 (10:16→10:19)
[2023-04-02] MEDS: AMIODARONE BOLUS KIT 100 ML IV ONE (10:25)
[2023-04-02] MEDS: AMIODARONE 450mg/250ml AE 250 ML IV SCH ×2 (10:40→18:55)
[2023-04-02] MEDS: SODIUM CHL 0.9% 1000 ML BAG XX ONE (11:15)
[2023-04-02] MEDS: METOCLOPRAMIDE HCL 5MG/ml INJ 2ml VIAL IV SCH (14:00)
[2023-04-02] MEDS: URSODIOL 300 MG CAP GT SCH (21:05)
[2023-04-02] MEDS: TPN*HIGH CONC* PER PHARMACY IV NR (21:23)
[2023-04-02] MEDS ORDERED: URSODIOL 300 MG GT SCH (22:00)
[2023-04-03] VITALS (117 sets, daily range): BP systolic 78–109; BP diastolic 43–63; PULSE 71–119; RESP 10–30; TEMP 98.1–99.6; O2SAT 93–100
[2023-04-03 04:25] LABS: Albumin 2.4 g/dL (3.2-4.8); Alkaline Phosphatase 92 U/L (46-116); Anion Gap 12 (5-15); Bilirubin, Total 25.2 mg/dL (0.2-1.0); Calcium 8.1 mg/dL (8.7-10.4); Carbon Dioxide 21 mmol/L (20-30); Chloride 102 mmol/L (98-107); Glucose 110 mg/dL (74-106); Magnesium 2.1 mg/dL (1.6-2.6); Phosphorus 4.9 mg/dL (2.4-5.1); Potassium 4.2 mmol/L (3.5-5.1); Sodium 135 mmol/L (136-145)
[2023-04-03 04:34] LABS: Alanine Aminotransferase 106 U/L (7-40); Aspartate Aminotransferase 166 U/L (13-40); BUN/Creatinine Ratio 11.7 (10.0-20.0); Total Protein 6.2 g/dL (5.7-8.2)
[2023-04-03 04:38] LABS: Blood Urea Nitrogen 107 mg/dL (9-23)
[2023-04-03 07:27] LABS: Base Excess -5.8 mmol/L (-2.0-2.0)
[2023-04-03 07:55] LABS: Basophils # (auto) 0 10 ^3/uL (0-0.2); Eosinophils # (auto) 0 10 ^3/uL (0-0.8); Eosinophils % (auto) 0.5 % (0.0-7.0); Hemoglobin 9.8 g/dL (13.5-17.5); Lymphocytes # (auto) 0.7 10 ^3/uL (0.4-5.4); Lymphocytes % (auto) 6.9 % (10.0-50.0); Mean Corpuscular Hemoglobin 30.3 pg (28.0-32.0); Mean Corpuscular Hgb Conc. 33.7 g/dL (32.0-36.0); Monocytes # (auto) 1.2 10 ^3/uL (0-1.3); Monocytes % (auto) 11.6 % (0.0-12.0); Neutrophils # (auto) 8.2 10 ^3/uL (1.6-8.6); Nucleated Red Blood Cells % 0.1 %; Red Blood Cells 3.22 10^6/uL (4.5-5.90); White Blood Cell 10.1 10^3/uL (4.4-10.8)
[2023-04-03 08:19] LABS: Red Cell Distribution Width 24.6 % (11.8-14.3)
[2023-04-03 08:49] LABS: Anisocytosis Moderate; Platelet Estimate Decreased
[2023-04-03] MEDS: TPN*HIGH CONC* PER PHARMACY IV NR (21:25)
[2023-04-04] VITALS (50 sets, daily range): BP systolic 84–136; BP diastolic 48–76; PULSE 77–168; RESP 13–31; TEMP 98.3–98.6; O2SAT 63–100
[2023-04-04 04:06] LABS: Basophils # (auto) 0 10 ^3/uL (0-0.2); Basophils % (auto) 0.3 % (0.0-2.0); Eosinophils # (auto) 0 10 ^3/uL (0-0.8); Eosinophils % (auto) 0.5 % (0.0-7.0); Hematocrit 29.3 % (41.0-53.0); Lymphocytes # (auto) 0.6 10 ^3/uL (0.4-5.4); Lymphocytes % (auto) 6.8 % (10.0-50.0); Mean Corpuscular Hemoglobin 30.9 pg (28.0-32.0); Mean Corpuscular Hgb Conc. 34.3 g/dL (32.0-36.0); Mean Corpuscular Volume 90.1 fL (80.0-100.0); Monocytes # (auto) 1.3 10 ^3/uL (0-1.3); Monocytes % (auto) 13.6 % (0.0-12.0); Neutrophils # (auto) 7.4 10 ^3/uL (1.6-8.6); Neutrophils % (auto) 78.8 % (37.0-80.0); Red Blood Cells 3.25 10^6/uL (4.5-5.90); White Blood Cell 9.4 10^3/uL (4.4-10.8)
[2023-04-04 04:12] LABS: Red Cell Distribution Width 25.4 % (11.8-14.3)
[2023-04-04 04:23] LABS: Albumin 2.6 g/dL (3.2-4.8); Alkaline Phosphatase 96 U/L (46-116); Anion Gap 14 (5-15); Calcium 8.5 mg/dL (8.7-10.4); Carbon Dioxide 18 mmol/L (20-30); Chloride 101 mmol/L (98-107); Glucose 102 mg/dL (74-106); Magnesium 2.2 mg/dL (1.6-2.6); Potassium 4.9 mmol/L (3.5-5.1); Sodium 133 mmol/L (136-145)
[2023-04-04 04:24] LABS: Bilirubin, Total 28.4 mg/dL (0.2-1.0); Phosphorus 5.5 mg/dL (2.4-5.1)
[2023-04-04 04:31] LABS: Alanine Aminotransferase 114 U/L (7-40); Aspartate Aminotransferase 176 U/L (13-40); BUN/Creatinine Ratio 12.1 (10.0-20.0); Total Protein 6.9 g/dL (5.7-8.2)
[2023-04-04 04:35] LABS: Blood Urea Nitrogen 126 mg/dL (9-23)
[2023-04-04 04:57] LABS: Anisocytosis Moderate; Platelet Estimate Decreased
[2023-04-04 04:58] LABS: Target Cell FEW
[2023-04-04 07:32] LABS: Base Excess -7.8 mmol/L (-2.0-2.0)
[2023-04-04] MEDS ORDERED: FUROSEMIDE 40 MG/4 ML VIAL ONE (10:05)
[2023-04-04] MEDS ORDERED: ADENOSINE 6 MG/2 ML INJ IV ONE ×2 (10:09→10:11)
[2023-04-04] MEDS: AMIODARONE BOLUS KIT 100 ML IV ONE (10:13)
[2023-04-04] MEDS ORDERED: FUROSEMIDE 40 MG/4 ML VIAL IV ONE (10:15)
[2023-04-04 10:28] LABS: Base Excess -13.7 mmol/L (-2.0-2.0)
[2023-04-04] MEDS ORDERED: AMIODARONE 450mg/250ml AE 250 ML IV SCH (10:45)
[2023-04-04] MEDS: MORPHINE SULFATE INJ 2 MG/ml SYRG IV PRN (11:05)
[2023-04-04] MEDS: LORazepam 2MG/ML-1ML VIAL IV ONE (11:06)
[2023-04-04] MEDS ORDERED: TPN*HIGH CONC* PER PHARMACY IV NR (20:00)
== END 2023-04-04 15:09 | DRG 720 ==
LOC: ER 19:46 → TELE 23:35 → ICU WEST 03-16 11:03
PROVIDERS: ADMIT Internal Medicine Pulmonary Disease; ATTEND Emergency Medicine
PROC: 5A1955Z Respiratory Ventilation, Greater than 96 Consecutive Hours (ICD-10-PCS; principal; 2023-03-16)
PROC: 0BH17EZ Insertion of Endotracheal Airway into Trachea, Via Natural or Artificial Opening (ICD-10-PCS; 2023-03-16)
PROC: 5A12012 Performance of Cardiac Output, Single, Manual (ICD-10-PCS; 2023-03-19)
PROC: 06HY33Z Insertion of Infusion Device into Lower Vein, Percutaneous Approach (ICD-10-PCS; 2023-03-19)
PROC: 30233K1 Transfusion of Nonautologous Frozen Plasma into Peripheral Vein, Percutaneous Approach (ICD-10-PCS; 2023-03-19)
PROC: 5A1D70Z Performance of Urinary Filtration, Intermittent, Less than 6 Hours Per Day (ICD-10-PCS; 2023-03-19)
PROC: 5A1D70Z Performance of Urinary Filtration, Intermittent, Less than 6 Hours Per Day (ICD-10-PCS; 2023-03-20)
PROC: 5A1D70Z Performance of Urinary Filtration, Intermittent, Less than 6 Hours Per Day (ICD-10-PCS; 2023-03-21)
PROC: 5A1D70Z Performance of Urinary Filtration, Intermittent, Less than 6 Hours Per Day (ICD-10-PCS; 2023-03-22)
PROC: 30233R1 Transfusion of Nonautologous Platelets into Peripheral Vein, Percutaneous Approach (ICD-10-PCS; 2023-03-23)
PROC: 5A1D70Z Performance of Urinary Filtration, Intermittent, Less than 6 Hours Per Day (ICD-10-PCS; 2023-03-23)
PROC: 5A1D70Z Performance of Urinary Filtration, Intermittent, Less than 6 Hours Per Day (ICD-10-PCS; 2023-03-25)
PROC: 5A1D70Z Performance of Urinary Filtration, Intermittent, Less than 6 Hours Per Day (ICD-10-PCS; 2023-03-27)
PROC: 5A1D70Z Performance of Urinary Filtration, Intermittent, Less than 6 Hours Per Day (ICD-10-PCS; 2023-03-29)
PROC: 5A1D70Z Performance of Urinary Filtration, Intermittent, Less than 6 Hours Per Day (ICD-10-PCS; 2023-03-31)
PROC: 5A1D70Z Performance of Urinary Filtration, Intermittent, Less than 6 Hours Per Day (ICD-10-PCS; 2023-04-02)
DX: A41.9 Sepsis, unspecified organism (principal); J96.01 Acute respiratory failure with hypoxia; N17.0 Acute kidney failure with tubular necrosis; I46.8 Cardiac arrest due to other underlying condition; R57.0 Cardiogenic shock; J69.0 Pneumonitis due to inhalation of food and vomit; G92.8 Other toxic encephalopathy; K70.40 Alcoholic hepatic failure without coma; G93.41 Metabolic encephalopathy; I13.0 Hypertensive heart and chronic kidney disease with heart failure and stage 1 through stage 4 chronic kidney disease, or unspecified chronic kidney disease; I50.43 Acute on chronic combined systolic (congestive) and diastolic (congestive) heart failure; I21.A1 Myocardial infarction type 2; N18.9 Chronic kidney disease, unspecified; F17.210 Nicotine dependence, cigarettes, uncomplicated; I42.0 Dilated cardiomyopathy; I48.0 Paroxysmal atrial fibrillation; E83.51 Hypocalcemia; K92.2 Gastrointestinal hemorrhage, unspecified; D69.59 Other secondary thrombocytopenia; E83.39 Other disorders of phosphorus metabolism; E87.1 Hypo-osmolality and hyponatremia; E87.20 Acidosis, unspecified; E87.5 Hyperkalemia; E88.09 Other disorders of plasma-protein metabolism, not elsewhere classified; F10.10 Alcohol abuse, uncomplicated; F12.10 Cannabis abuse, uncomplicated; F15.10 Other stimulant abuse, uncomplicated; Z20.822 Contact with and (suspected) exposure to COVID-19; R74.01 Elevation of levels of liver transaminase levels; D72.829 Elevated white blood cell count, unspecified; I47.10 Supraventricular tachycardia, unspecified; R73.9 Hyperglycemia, unspecified; G93.1 Anoxic brain damage, not elsewhere classified; I08.1 Rheumatic disorders of both mitral and tricuspid valves; I25.10 Atherosclerotic heart disease of native coronary artery without angina pectoris; I42.7 Cardiomyopathy due to drug and external agent; I47.20 Ventricular tachycardia, unspecified; M62.82 Rhabdomyolysis; Z91.199 Patient's noncompliance with other medical treatment and regimen due to unspecified reason; Z82.49 Family history of ischemic heart disease and other diseases of the circulatory system; Z83.3 Family history of diabetes mellitus; Z80.42 Family history of malignant neoplasm of prostate; Z98.61 Coronary angioplasty status
CPT/HCPCS: 36415; 36600; 70450; 70551; 71045; 71250; 74176; 76700; 76705; 80048; 80053; 80061; 80074; 80202; 80307; 81001; 82140; 82306; 82533; 82550; 82570; 82728; 82805; 82962; 83036; 83540; 83550; 83605; 83615; 83735; 83880; 83970; 84100; 84132; 84156; 84300; 84443; 84478; 84484; 85007; 85025; 85027; 85379; 85610; 85730; 86704; 86706; 86708; 86803; 86850; 86900; 86901; 87040; 87070; 87077; 87086; 87205; 87340; 87426; 87804; 90935; 92950; 93005; 93306; 93970; 94002; 94003; 94640; 95819; 99291; C9113; G0378; J0153; J0171; J1642; J1815; J2185; J2250; J2405; J2543; J2704; J3430; J3480; J7131; P9047